=== PATIENT | male | born 1965 | race Caucasian/White ===

== ENCOUNTER 2018-07-06 11:03 | Outpatient (REF) | payer BC, SELFPAY ==
[2018-07-06 12:54] LABS: COMMENT (LAB VIEW ONLY) 150.84 mg/dL; Microalb ug/mg Crea 4.8 ug/mg Cr
[2018-07-06 12:54] LABS: ALT 29 U/L (12-78); AST 16 U/L (15-37); Albumin 3.6 g/dL (3.4-5.0); Alkaline Phosphatase 72 U/L (46-116); Anion Gap 7.9 mmol/L (3-11); BUN 13 mg/dL (7-18); Bilirubin, Total 0.3 mg/dL (0.2-1.0); CO2 26.1 mmol/L (21.0-32.0); CREATININE 1.08 mg/dL (0.70-1.30); Calcium 8.8 mg/dL (8.5-10.1); Chloride 104 mmol/L (98-107); Cholesterol 142 mg/dL (50-200); Glucose 106 mg/dL (70-100); HDL Cholesterol 53 mg/dL (40-60); LDL CHOLESTEROL 76 mg/dL (<100); Potassium 4.8 mmol/L (3.5-5.1); Sodium 138 mmol/L (136-145); TSH (W/Ref FT4) 2.55 uIU/mL (0.358-3.74); Total Protein 6.9 g/dL (6.4-8.2); Triglyceride 97 mg/dL (30-150)
[2018-07-07 09:35] LABS: PSA, Screening 0.8 ng/ml (0-3.5)
== END 2018-07-06 11:23 ==
LOC: NCHCN 11:03
PROVIDERS: PCP Nurse Practitioner Family; Visit Provider Nurse Practitioner Family
DX: I10 Essential (primary) hypertension (principal); E03.9 Hypothyroidism, unspecified; Z12.5 Encounter for screening for malignant neoplasm of prostate
CPT/HCPCS: 80053; 80061; 83721; 84153; 82043; 82570; 84443

== ENCOUNTER 2019-09-01 09:31 | Outpatient (REF) | payer BC, SELFPAY ==
[2019-09-01 12:32] LABS: Bilirubin Negative (Negative); Blood Trace-intact (Negative); Clarity Clear (Clear); Glucose Negative (Negative); Ketones Negative (Negative); Leukocyte Esterase Negative (Negative); Nitrite Negative (Negative); Specific Gravity 1.025 (1.005-1.025); Urobilinogen 0.2 EU/dL (Up TO 0.2)
[2019-09-01 12:41] LABS: Bacteria Few HPF (Negative); C & S Indicated? No; Casts Negative LPF (Negative); Crystals Negative HPF (Negative); Epithelial Cells Rare HPF (Negative); Mucus Trace (Negative); WBC 0-2 HPF (0-5)
== END 2019-09-01 09:51 ==
LOC: NCHCN 09:31
PROVIDERS: PCP Nurse Practitioner Family; Visit Provider Nurse Practitioner Family
DX: N39.41 Urge incontinence (principal)
CPT/HCPCS: 81003; 81015

== ENCOUNTER 2022-12-09 09:28 | Outpatient (REF) | payer BC, SELFPAY ==
[2022-12-09 15:37] LABS: Hemoglobin A1C 6.4 % (<5.7)
[2022-12-09 15:51] LABS: ALT 22 U/L (16-63); AST 16 U/L (15-37); Albumin 3.8 g/dL (3.4-5.0); Alkaline Phosphatase 70 U/L (46-116); Anion Gap 9.8 mmol/L (3-11); BUN 14 mg/dL (7-18); Bilirubin, Total 0.4 mg/dL (0.2-1.0); CO2 26.2 mmol/L (21.0-32.0); Calcium 9.5 mg/dL (8.5-10.1); Calculated LDL 67 mg/dL (<100); Chloride 103 mmol/L (98-107); Cholesterol 139 mg/dL (<200); Estimated GFR 88.33 (mL/min/1.73m2); Glucose 115 mg/dL (74-106); HDL Cholesterol 50 mg/dL (40-60); Potassium 4.6 mmol/L (3.5-5.1); Sodium 139 mmol/L (136-145); TSH 7.02 uIU/mL (0.36-3.74); Triglyceride 113 mg/dL (<150)
[2022-12-09 16:27] LABS: FREE T4 0.82 ng/dL (0.76-1.46); Total Protein 7.1 g/dL (6.4-8.2)
== END 2022-12-09 09:29 | disposition home or self-care (01) ==
LOC: NCHCN 09:28
PROVIDERS: Visit Provider Nurse Practitioner Family
DX: E03.9 Hypothyroidism, unspecified (principal); Z12.5 Encounter for screening for malignant neoplasm of prostate; Z87.891 Personal history of nicotine dependence
CPT/HCPCS: 80053; 80061; 84153; 83036; 84439; 84443

== ENCOUNTER 2023-07-20 13:17 | Outpatient (REF) | payer BC, SELFPAY ==
[2023-07-20 20:32] LABS: ALT 26 U/L (16-63); AST 21 U/L (15-37); Albumin 3.9 g/dL (3.4-5.0); Alkaline Phosphatase 71 U/L (46-116); Anion Gap 13.2 mmol/L (3-11); BUN 15 mg/dL (7-18); Bilirubin, Total 0.4 mg/dL (0.2-1.0); CO2 21.8 mmol/L (21.0-32.0); Calcium 9.2 mg/dL (8.5-10.1); Chloride 103 mmol/L (98-107); Estimated GFR 87.78 (mL/min/1.73m2); FREE T4 0.85 ng/dL (0.76-1.46); Glucose 105 mg/dL (74-106); Potassium 4.2 mmol/L (3.5-5.1); Sodium 138 mmol/L (136-145); TSH 4.74 uIU/mL (0.36-3.74); Total Protein 7.5 g/dL (6.4-8.2)
[2023-07-20 22:54] LABS: Hemoglobin A1C 6.4 % (<5.7)
== END 2023-07-20 13:18 | disposition home or self-care (01) ==
LOC: NCHCN 13:17
PROVIDERS: PCP Nurse Practitioner Family; Visit Provider Nurse Practitioner Family
DX: E03.9 Hypothyroidism, unspecified (principal); I10 Essential (primary) hypertension; R73.03 Prediabetes
CPT/HCPCS: 80053; 83036; 84439; 84443

== ENCOUNTER 2023-07-30 04:16 | Outpatient (CLI) | payer BC, SELFPAY ==
[2023-07-30] MEDS: Levalbuterol HFA 15 GM INH 4 PUFF IH (09:27)
[2023-07-30] MEDS: Inhaler, Assist Device 1 EACH MC (09:27)
--- NOTE | 2023-08-02 14:08 | W.PFT ---
Date of service: 07/30/23 Time of Service: 07:59 Pulmonary Function Test Result Indications: Dyspnea Interpretation Spirometry: There is no airflow limitation. No significant bronchodilator response. Lung Volumes: Normal lung volumes Diffusion Capacity: Normal diffusion Airway Pressure: Normal resistance Impression Normal pulmonary function testing Clinical Correlation therefore is recommended.
== END 2023-07-30 04:17 | disposition home or self-care (01) ==
LOC: RT 04:16
PROVIDERS: PCP Nurse Practitioner Family; Visit Provider Nurse Practitioner Family
DX: R06.09 Other forms of dyspnea (principal)
CPT/HCPCS: 94060; 94726; 94729

== ENCOUNTER 2023-09-03 09:09 | Emergency (ER) | payer BC, SELFPAY ==
[2023-09-03 09:17] VITALS: BP 130/65; PULSE 61; RESP 20; TEMP 36.4; O2SAT 100
[2023-09-03 09:41] VITALS: BP 130/65; PULSE 61; RESP 20; TEMP 36.4; O2SAT 100
--- NOTE | 2023-09-03 10:00 | DI.CT_ITS ---
Exam(s) CT RENAL COLIC WO EXAM: CT RENAL COLIC WO CLINICAL HISTORY: right flank pain. TECHNIQUE: Imaging Protocol: Axial computed tomography images with coronal and sagittal reformatted images were created and reviewed. CONTRAST MATERIAL: Noncontrast COMPARISON: CT CHEST FOR PULMONARY EMBOLUS from 05/20/[address] CHEST LUNG CANCER SCREEN from 08/13/2023 FINDINGS: ABDOMEN: Lung Bases: Normal where visualized. Liver: Enlarged. Severe hepatic steatosis. No measurable mass. Gallbladder and biliary tract: No radiodense calculus or dilation. Pancreas: Normal density, no calcifications or inflammatory process. Spleen: Normal. Kidneys: Normal size, contour and axis. 7 millimeter stone noted in lower pole collecting system of t he left kidney. Additional punctate stone lower pole left kidney. No right renal calculi. No perin ephric collections. No masses seen. Adrenal glands: No masses seen. Abdominal Aorta: Abdominal portion non-dilated. Soft tissues: Bilateral fatty containing inguinal hernias, left greater than right. PELVIS: Bladder: Symmetric distention, no gross wall thickening. No evidence of stones.No visible mass. Bowel: No obstruction or bowel wall thickening. Reproductive: Unremarkable. Peritoneal cavity: No ascites, collection or mesenteric inflammatory response. Bones: Degenerative changes in the spine. Bilateral L5 spondylolysis and mild L5-S1 spondylolisthesi s. IMPRESSION: 7 millimeter nonobstructed calculus in the lower pole collecting system of the left kidney. Findings called to Derrick Rios, emergency department provider. RADIATION DOSE DELIVERED: Total DLP DATA REPOSITORY: All CT scans at this facility are submitted to the National Radiology Data Registry (NRDR) Dose Index Registry (DIR) with the [employer] (A[employer]). RADIATION OPTIMIZATION: All CT scans at this facility use at least one of these dose optimization te chniques: automated exposure control; mA and/or kV adjustment per patient size (includes targeted exa ms where dose is matched to clinical indication); or iterative reconstruction.
--- NOTE | 2023-09-03 10:10 | ED.GENADUL_ITS ---
Discharge Plan Disposition Patient Disposition: Home Discharge Details Clinical Impression: Acute right flank pain, Hematuria, Renal calculus, left Primary Care Provider: Francheska Sheffield ED Provider: Derrick Rios Home Meds and New Rx's Prescriptions: New tamsulosin [Flomax] 0.4 mg capsule 0.4 mg PO QHS Qty: 30 1RF Continued gabapentin 100 mg capsule 300 mg PO QHS oxybutynin chloride 15 mg tablet extended release 24hr 15 mg PO DAILY budesonide-formoterol [Symbicort] 160-4.5 mcg/actuation HFA aerosol inhaler 2 puff IH BID ProAir RespiClick 90 mcg/actuation aerosol powdr breath activated 2 inh IH Q6H PRN duloxetine [Cymbalta] 60 mg capsule,delayed release(DR/EC) 90 mg PO DAILY cholecalciferol (vitamin D3) 50,000 unit capsule 50,000 unit PO QWEEK lisinopril [Zestril] 20 MG tablet 40 mg PO DAILY levothyroxine [Synthroid] 50 MCG tablet 50 mcg PO DAILY Hold Instructions: patient's request to hold multivitamin 1 EACH capsule 1 cap PO DAILY Discharge Instructions Instructions: Kidney Stones (ED), Flank Pain (ED) Additional Instructions: At this time you do have a kidney stone in your left kidney but no findings were identified for your right flank pain. This could be medication reaction versus musculoskeletal. Currently I am recommending you hold any of your new medications and take your previously prescribed meds and follow-up with your primary care provider for further discussion of resumption of the new medications. As far as the left kidney stone it appears stable at this moment but we have started you on a medication you should take every night that if it decides to move or start expelling this should hopefully help decrease the discomfort and at that time you should call the urology office and less severe pain occurs. For any new or significant worsening of symptoms feel free to return the emergency department for recheck Referrals: [facility] [Provider Group] (As needed ) Francheska Sheffield [Primary Care Provider] - (For further discussion of restarting any medications) Discharge Data Discharge Date/Time-TO BE ENTERED AT DEPARTURE: 09/03/23 12:10 Medical Decision Making Patient presenting to the emergency department for chief complaint of right flank pain. Patient reports that this started within 24 to 48 hours after starting new medications of atorvastatin hydrochlorothiazide and lisinopril. He does state his other medications he has been on for a while and he had some increases of these meds but they have never caused him any issues. Patient states that pain has continued to increase. 6 days ago he stopped all of the new medications but has continued to have pain and discomfort. Patient contacted his primary care provider who recommended he come to the emergency department. Beyond right flank pain that is intermittently increased by movement patient denies all other symptoms. Patient has past medical history of complicated surgery due to work injury and MRSA, hypertension, hyperlipidemia, prediabetes, and obesity. Physical exam is completely unremarkable with no findings noted except for very slight right CVA tenderness. We will plan on checking labs and CT imaging. No emergent intervention needed as patient states he is pain-free at the moment of exam. Differential diagnosis is broad but including hepatotoxicity secondary to atorvastatin, renal dysfunction, kidney stone, myalgia secondary to atorvastatin, or paraspinal/back strain. Reviewed patient's labs and CBC is overall noncontributory CMP shows slight elevation of BUN at 26 otherwise within normal range of labs. Urinalysis shows trace amount of blood but is negative for infection or other findings. CT imaging does show a 7.5 mm stone within the left renal collecting system otherwise no obvious emergent findings noted on imaging. Suspect possible myalgia or medication reaction causing right flank pain so we will have patient hold off on new medications and discuss resumption of these meds with primary care provider given the short timeframe of new medications and symptoms. Given significant stone that is in the left collecting system did speak with Dr. Betancourt and discussed starting patient on tamsulosin. After he reviewed CT imaging he did state that this would be beneficial which I agree. Patient to follow-up with primary care provider about resumption of meds and urology if he becomes symptomatic for her reevaluation of kidney stone. After discussion of diagnosis and plan of care patient has no further needs, questions , or concerns and states clear understanding to return to the emergency department for any worsening symptoms. This documentation was generated using [employer] system, please disregard any oddities of phrase or misspellings. Imaging Data Radiologic Study: Imaging: CT Scan Radiologist's impression: Exam(s) CT RENAL COLIC WO EXAM: CT RENAL COLIC WO CLINICAL HISTORY: right flank pain. TECHNIQUE: Imaging Protocol: Axial computed tomography images with coronal and sagittal reformatted images were created and reviewed. CONTRAST MATERIAL: Noncontrast COMPARISON: CT CHEST FOR PULMONARY EMBOLUS from 05/20/[address] CHEST LUNG CANCER SCREEN from 08/13/2023 FINDINGS: ABDOMEN: Lung Bases: Normal where visualized. Liver: Enlarged. Severe hepatic steatosis. No measurable mass. Gallbladder and biliary tract: No radiodense calculus or dilation. Pancreas: Normal density, no calcifications or inflammatory process. Spleen: Normal. Kidneys: Normal size, contour and axis. 7 millimeter stone noted in lower pole collecting system of the left kidney. Additional punctate stone lower pole left kidney. No right renal calculi. No perinephric collections. No masses seen. Adrenal glands: No masses seen. Abdominal Aorta: Abdominal portion non-dilated. Soft tissues: Bilateral fatty containing inguinal hernias, left greater than right. PELVIS: Bladder: Symmetric distention, no gross wall thickening. No evidence of stones.No visible mass. Bowel: No obstruction or bowel wall thickening. Reproductive: Unremarkable. Peritoneal cavity: No ascites, collection or mesenteric inflammatory response. Bones: Degenerative changes in the spine. Bilateral L5 spondylolysis and mild L5-S1 spondylolisthesis. IMPRESSION: 7 millimeter nonobstructed calculus in the lower pole collecting system of the left kidney. Findings called to Derrick Rios, emergency department provider. Lab Data Lab results reviewed: Yes I reviewed the patient's lab results. HPI General Mode of arrival: ambulatory . Date/Time Provider Initiated Documentation: 09/03/23 09:09 . Limitations to Documentation: no limitations . Information obtained by: patient and RN notes reviewed . History of Present Serjio patterson 58 year old M presents to the emergency department with the chief complaint of right flank pain , described as moderate and severe, Quality is described as other, and is localized to the back and right. Patient reports no radiation. Patient started experiencing this week(s) (8) and it has been constant. No relieving factors improve symptom(s), Medication worsens symptoms . Patient notes no other symptoms.. Patient did receive the following treatments prior to arrival, NSAID Related Data Home Medications Medication Instructions Recorded Confirmed levothyroxine 50 mcg tablet 50 mcg PO DAILY 05/20/15 09/03/23 (Synthroid) lisinopril 20 mg tablet (Zestril) 40 mg PO DAILY 05/20/15 09/03/23 multivitamin 1 cap PO DAILY 05/20/15 09/03/23 albuterol sulfate 90 mcg/actuation 2 inh inhalation Q6H PRN 09/18/19 09/03/23 breath activated powder inhaler (ProAir RespiClick) budesonide-formoterol HFA 160 2 puff inhalation BID 09/18/19 09/03/23 mcg-4.5 mcg/actuation aerosol inhaler (Symbicort) cholecalciferol (vitamin D3) 1,250 50,000 unit PO QWEEK 09/18/19 09/03/23 mcg (50,000 unit) capsule duloxetine 60 mg capsule,delayed 90 mg PO DAILY 09/18/19 09/03/23 release (Cymbalta) gabapentin 100 mg capsule 300 mg PO QHS 09/18/19 09/03/23 oxybutynin chloride 15 mg 15 mg PO DAILY 09/18/19 09/03/23 tablet,extended release 24 hr tamsulosin 0.4 mg capsule (Flomax) 0.4 mg PO QHS #30 caps 09/03/23 Previous Rx's Medication Instructions Recorded tamsulosin 0.4 mg capsule (Flomax) 0.4 mg PO QHS #30 caps 09/03/23 Allergies Allergy/AdvReac Type Severity Reaction Status Date / Time paroxetine [From Paxil] Allergy Unknown unknown Verified 09/03/23 09:23 pregabalin [From Lyrica] Allergy Unknown unknown Verified 09/03/23 09:23 acetaminophen [From Vicodin] AdvReac Intermediate Headache Unverified 09/03/23 09:23 hydrocodone bitartrate AdvReac Intermediate Headache Unverified 09/03/23 09:23 [From Vicodin] General Stated Complaint: FlankPain TEODORO: 3 Review of Systems Constitutional Constitutional: Reports chills, Denies fever(s) and Reports malaise Cardiovascular Cardiovascular: Denies chest pain and Denies dyspnea Respiratory Respiratory: Denies cough and Denies dyspnea Gastrointestinal Gastrointestinal: Denies abdominal pain, Denies diarrhea, Denies nausea and Denies vomiting Genitourinary Genitourinary: Denies hematuria and Reports flank pain Musculoskeletal Musculoskeletal: Reports back pain, Denies myalgias, Denies arthralgias, Denies numbness, Denies stiffness and Denies tingling Integumentary/Breasts Skin/Breast: Denies rash Neurologic Neurologic: Denies numbness and Denies tingling PFSH All Active Problems (Updated 09/03/23 @ 12:01 by Derrick Rios NP) Renal calculus, left (Acute) Acute right flank pain (Acute) DJD (degenerative joint disease) (Chronic) Obesity, morbid, BMI 50 or higher (Acute) Hypertension (Chronic) Anxiety (Chronic) Depression (Chronic) Hypothyroidism (Chronic) SOB (shortness of breath) (Acute) Urge incontinence (Acute) Asthma (Chronic) Hematuria (Acute) Onychomycosis (Acute) Former smoker (Acute) OLIVIA (dyspnea on exertion) (Acute) Social History Smoking/Tobacco Use Status: Current every day Smoking risk assessment performed?: Yes Alcohol Intake: current Alcohol Intake frequency: a few times a month Drug use: Never Substance use type: does not use Housing: house Do you feel safe at home: Yes Do you feel safe in your relationship?: Yes Exam Const General: cooperative Orientation: alert, awake and oriented x3 Resp Effort & Inspection: normal respiratory effort and able to speak in complete sentences Auscultation: clear to auscultation bilaterally Cardio Rate: regular rate Rhythm: regular rhythm Heart Sounds: S1 normal and S2 normal GI Inspection: obesity Palpation: soft, not firm, no guarding, no masses, no pulsatile masses, not rigid, no splenomegaly and nontender Auscultation: normal bowel sounds General: CVA tenderness on the right Back/Spine/Pelvis Back: CVA tenderness Thoracic/Lumbar Spine: thoracic and lumbar spine normal to inspection, No pain with thoraco-lumbar ROM, No paraspinal tenderness, No thoracic spinal tenderness and No lumbar spinal tenderness Neuro General: patient alert, patient awake, patient oriented x3, gait normal and moves all extremities Course Vital Signs Vital signs: Vital Signs Temperature 36.4 C L 09/03/23 09:17 Pulse 61 09/03/23 09:17 Respiratory Rate 20 09/03/23 09:17 Blood Pressure 130/65 09/03/23 09:17 Pulse Oximetry 100 09/03/23 09:17 Temperature 36.4 C L 09/03/23 09:41 Temperature Source Temporal Artery Scan 09/03/23 09:41 Pulse 61 09/03/23 09:41 Respiratory Rate 20 09/03/23 09:41 Respiratory Effort Normal 09/03/23 09:52 Blood Pressure 130/65 09/03/23 09:41 Blood Pressure Position Sitting 09/03/23 09:41 Pulse Oximetry 100 09/03/23 09:41 Oxygen Delivery Method Room Air 09/03/23 09:41 Oxygen Flow Rate 0 09/03/23 09:41
[2023-09-03 10:22] LABS: Abs Immature Grans 0.02 10^3/uL (0.0-0.06); Absolute Basophil Count 0.05 10^3/uL (0.0-0.2); Absolute Eosinophil Count 0.22 10^3/uL (0.0-0.7); Absolute Lymphocyte Count 1.85 10^3/uL (1.2-3.4); Absolute Monocyte Count 1.14 10^3/uL (0.1-0.8); Absolute Neutrophil Count 5.92 10^3/uL (1.2-6.7); Basophils % 0.5; Eosinophils % 2.4; HCT 46.9 % (40.0-50.0); HGB 14.9 g/dL (13.5-17.5); Immature Grans % 0.2; Lymphocytes % 20.1; MCH 26.7 pg (27.0-33.0); MCHC 31.8 % (32.0-36.0); MCV 84 fL (80-95); MPV 9.5 fL (8.0-11.0); Monocytes % 12.4; Neutrophils % 64.4; Platelet Count 339 10^3/uL (130-400); RBC 5.59 10^6/uL (4.36-5.78); RDW 14.5 % (11.8-14.1)
[2023-09-03 10:42] LABS: ALT 22 U/L (16-63); AST 15 U/L (15-37); Alkaline Phosphatase 66 U/L (46-116); Anion Gap 9.8 mmol/L (3-11); BUN 26 mg/dL (7-18); Bilirubin, Total 0.4 mg/dL (0.2-1.0); CO2 24.2 mmol/L (21.0-32.0); CREATININE 1.3 mg/dL (0.70-1.30); Calcium 9.6 mg/dL (8.5-10.1); Chloride 104 mmol/L (98-107); Creatine Kinase 147 U/L (39-308); Estimated GFR 64.07 (mL/min/1.73m2); Glucose 94 mg/dL (74-106); Potassium 4.5 mmol/L (3.5-5.1); Sodium 138 mmol/L (136-145); Uric Acid 7.2 mg/dL (3.5-7.2)
[2023-09-03 11:12] LABS: Bilirubin Negative (Negative); Blood Trace-intact (Negative); Clarity Clear (Clear); Glucose Negative (Negative); Ketones Negative (Negative); Leukocyte Esterase Negative (Negative); Nitrite Negative (Negative); Urobilinogen 0.2 mg/dL (Up to 0.2); pH 5.5 (5-8)
[2023-09-03 11:22] LABS: Bacteria Negative HPF (Negative); C & S Indicated? No; Casts Negative LPF (Negative); Crystals Negative HPF (Negative); Epithelial Cells Rare HPF (Negative); Mucus Negative (Negative); RBC 0-2 HPF (0-2); WBC Negative HPF (0-5)
[2023-09-03] MEDS: Lidocaine 5% Patch 1 PATCH TP (12:07)
== END 2023-09-03 12:10 | disposition home or self-care (01) ==
PROVIDERS: Emergency Provider Nurse Practitioner Family; PCP Nurse Practitioner Family
DX: R10.9 Unspecified abdominal pain (principal); N20.0 Calculus of kidney; K40.20 Bilateral inguinal hernia, without obstruction or gangrene, not specified as recurrent; I10 Essential (primary) hypertension; E78.5 Hyperlipidemia, unspecified
CPT/HCPCS: 36415; 80053; 82550; 99284; 74176; 81003; 81015; 84550; 85025

== ENCOUNTER 2023-11-11 10:59 | Day surgery (SDC) | payer BC, SELFPAY ==
[2023-11-11] VITALS (9 sets, daily range): BP systolic 101–139; BP diastolic 48–83; PULSE 64–83; RESP 13–17; TEMP 36.3–36.6; O2SAT 96–99; BMI 49.4
--- NOTE | 2023-11-11 12:05 | ANES.PREOP_ITS ---
General Info Date of Service Date Performed: 11/11/23 Height: 5 ft 8 in Weight: 147.418 kg Body Mass Index (BMI): 49.4 Surgical Procedure: Operation Date: 11/11/23 13:10 Proposed Procedure Side Surgeon p Cystoscopy/Laser/Retrograde/Ureteroscopy/Possible Stent Left Onesimo Betancourt MD s Circumcision Onesimo Betancourt MD Meds Allergies and Home Medications Allergies Allergy/AdvReac Type Severity Reaction Status Date / Time paroxetine [From Paxil] Allergy Unknown unknown Verified 11/11/23 11:47 pregabalin [From Lyrica] Allergy Unknown unknown Verified 11/11/23 11:47 Sulfa (Sulfonamide Allergy Verified 11/11/23 11:47 Antibiotics) acetaminophen [From Vicodin] AdvReac Intermediate Headache Unverified 11/11/23 11:47 hydrocodone bitartrate AdvReac Intermediate Headache Unverified 11/11/23 11:47 [From Vicodin] Home Medication Medication Instructions Recorded levothyroxine 50 mcg tablet 50 mcg PO DAILY 05/20/15 (Synthroid) lisinopril 20 mg tablet (Zestril) 40 mg PO DAILY 05/20/15 multivitamin 1 cap PO DAILY 05/20/15 duloxetine 60 mg capsule,delayed 90 mg PO DAILY 09/18/19 release (Cymbalta) tamsulosin 0.4 mg capsule (Flomax) 0.4 mg PO QHS #30 caps 09/03/23 cyclobenzaprine 10 mg tablet 10 mg PO BID 10/29/23 metformin 500 mg tablet 500 mg PO DAILY 10/29/23 vuemzkr-dksmutvgcklra-zjpzqeng 250 1 tab PO ONCE 11/11/23 mg-250 mg-65 mg tablet ogiomwd-deeexwltc-wzij 333 mg-133 tab PO 11/11/23 mg-5 mg tablet fish, borage, flaxseed oils-omega 1 cap PO DAILY 11/11/23 3,6,9 cb #1 400 mg-400 mg-400 mg cap ([place] 3-6-9 Complex) fish, borage, flaxseed oils-omega 1 cap PO DAILY 11/11/23 3,6,9 cb #1 400 mg-400 mg-400 mg cap (Triple [place] 3-6-9) hydrochlorothiazide 25 mg tablet mg 11/11/23 tri chromium 500 mcg 01/11/24 Current Visit Medications: Current Medications Generic Name Dose Route Start Last Admin Trade Name Freq PRN Reason Stop Dose Admin Ringer's Solution 1,000 mls @ 80 mls/hr 11/11/23 06:00 IV 12/10/23 23:59 INFUSION CÉSAR Cefazolin Sodium 3,000 mg/ 100 mls @ 200 mls/hr 11/11/23 06:00 Sodium Chloride IVPB 11/11/23 16:00 PREOP CÉSAR IV Miscellaneous Supplies 1 each 11/11/23 06:00 Iv Access IV 12/10/23 23:59 DIRECTED CÉSAR Sodium Chloride 0 ml 11/11/23 06:00 Normal Saline Flush 10 Ml Syr IV 12/10/23 23:59 PRN PRN Sodium Chloride 0 ml 11/11/23 06:00 Normal Saline 10 Ml Vial IJ 12/10/23 23:59 DIRECTED PRN Sterile Water 0 ml 11/11/23 06:00 Water,Injection,Sterile 10 Ml Vial IJ 12/10/23 23:59 DIRECTED PRN PFSH Active Problems Active Problems: Problem Status Onset Code Phimosis N47.1 DJD (degenerative joint disease) M19.90 Obesity, morbid, BMI 50 or higher E66.01 Hypertension I10 Anxiety F41.9 Depression F32.9 Hypothyroidism E03.9 SOB (shortness of breath) R06.02 Urge incontinence N39.41 Asthma J45.909 Hematuria R31.9 Onychomycosis B35.1 Former smoker Z87.891 OLIVIA (dyspnea on exertion) R06.09 Medical History Medical History (Updated 11/11/23 @ 12:18 by Onesimo Betancourt MD) Hx MRSA infection 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 Hx of tear of ACL (anterior cruciate ligament) x3 l knee Surgical History Surgical History (Updated 11/11/23 @ 11:59 by Sarah Phan) Hx of appendectomy History of carpal tunnel release of both wrists Hx of repair of right rotator cuff Tobacco Smoking/Tobacco Use Status: Former Tobacco Use Alcohol Alcohol Intake: current Alcohol intake frequency: a few times a month Substance Use Substance use: Never Substance use type: does not use Vital Signs and Lab Results Vital Signs Most Recent Vital Signs in EMR: Temp Pulse Resp BP Pulse Ox 36.6 C 83 15 139/83 97 11/11/23 12:01 11/11/23 12:01 11/11/23 12:01 11/11/23 12:01 11/11/23 12:01 Lab Results Blood Type / Crossmatch: No Data to Display Complete Blood Count: No Data to Display Complete Metabolic Panel: No Data to Display Liver Function Panel: No Data to Display Coagulation Panel: No Data to Display Cardiac Panel: No Data to Display Arterial Blood Gas: No Data to Display Venous Blood Gas: No Data to Display Pancreas Panel: No Data to Display Thyroid Panel: No Data to Display Infectious Disease: No Data to Display Blood Cultures: No Data to Display Toxicology Panel: No Data to Display Imaging and Studies Imaging and Studies Study information below may be from another EMR and interpreted by another provider. Please see original notes in EMR for more complete details. Stress Test Summary: Patient Name: STEVIE BAILEY Unit #: [id number] Loc: DI Ordering Provider: Cata Zhu Status: REG I Primary Care Provider: Cata Zhu Date of Exam: 06/03/15 Sex: M : 1965 Age: 50 Exam(s) [id number] NM:MPI Resting & Stress GRP *[facility]* *[facility]* [address] [place] [address] Myocardial Perfusion Imaging - SPECT Georges protocol Date of study: 06/03/2015 *PATIENT PRESENTATION* Height: 172.7cm (68in ) Blood Pressure: Weight: 147.7kg (325lb ) BSA: 2.75m^2 Impressions: - Normal perfusion by Tc99m Sestamibi Imaging. - Abnormal contraction consistent with cardiomyopathy. Summary: Myocardial perfusion imaging: No myocardial perfusion defects noted. Indication: 786.50. History: PT STATES THAT HE HAS HAD EPISODIC CHEST PAIN THIS YEAR. NOTABLY, PT HAS A SUDDEN ONSET OF CHEST PAIN WHILE DRIVING. HE C/O DIAPHORESIS, PAIN IN THE LEFT JAW AND LEFT ARM. PT WAS GIVEN NITROGLYCERIN BY EMS, WHICH RELIEVED THE CHEST PAIN. HE STATES THAT THE NUMBNESS IN HIS LEFT ARM LASTED A COUPLE DAYS. HE STATES HE HAD ANOTHER EPISODE OF CHEST PAIN LAST WEDNESDAY, WHICH LASTED ABOUT 30 MINUTES. PT DENIES CHEST PAIN CURRENTLY. HE DENIES SOB. Risk factors: FORMER SMOKER; 30 PACK YEAR HX PT STATES HE IS ACTIVE, BUT DOESNT GO OUT OF MY WAY. FAMILY HX: NONE Hypertension. Obesity. Cholesterol: 140mg/dl. HDL: 44mg/dl. LDL: 82mg/dl. Triglycerides: 119mg/dl. Imaging Technique: Protocol: Georges protocol. Acquisition: Gated SPECT; 1 day - rest/stress. The patient was imaged in the supine position. Attenuation correction used. Isotope administration: - Rest. Tc[99m]-sestamibi. Dose: 13.9mCi. Injection time: 10:05 AM. Injection to stress time: 00:45. - Stress. Tc[99m]-sestamibi. Dose: 47.2mCi. Injection time: 11:39 AM. 1-2 min before end of exercise Baseline ECG: SINUS @ 76 BPM Stress protocol: +--------+--+ + + Stage HR BP (mmHg) Comments +--------+--+ + + Baseline 76 132/80 (97) +--------+--+ + + 1 min 85 140/80 (100) Inject Regadenoson. +--------+--+ + + 2 min 83 132/80 (97) +--------+--+ + + 3 min 80 132/78 (96) +--------+--+ + + 4 min 79 134/78 (97) +--------+--+ + + 6 min 76 134/80 (98) +--------+--+ + + * Stress results: The rate-pressure product for the peak heart rate and blood pressure was 89457fn Hg/min. Stress ECG: TEST ENDED AT 06 MINUTES 25 SECONDS BECAUSE SYMPTOMS OF LEXISCAN SUBSIDED APPROPRIATE BP RESPONSE NO ECTOPY NO ANGINA Myocardial perfusion: Imaging information: gated. No myocardial perfusion defects noted. Ventricular Function (Wall Motion): The calculated left ventricular ejection fraction after stress: 44%. Study data: [facility] INFO: [id number] Stevie Amezcua MD supervised and was readily available during the procedure. This study was interpreted by [facility]. Study status: Routine. Consent: The risks, benefits, and alternatives to the procedure were explained to the patient and informed consent was obtained. Procedure: Initial setup. A baseline ECG was recorded. Surface ECG leads and manual cuff blood pressure measurements were monitored. Heart sounds: Normal. Lung sounds: Normal. Treadmill exercise testing was performed using the Georges protocol. Study completion: All catheters inserted during the procedure were removed. The patient tolerated the procedure well and was discharged from the lab. Discharge: The patient left the laboratory in stable condition. Birthdate: Patient birthdate: 1965. Sex: Gender: male. Study date: Study date: 03-Jun-2015. Electronically signed by Stevie Amezcua MD 06/03/2015 18:31 Dictated by: MANJEET HANDY M.D.06/03/15 1000 <Electronically signed by MANJEET HANDY M.D.>06/05/15 1623 Disclaimer: The [facility] radiologist is signing only the Nuclear Medicine MPI Imaging exam portion of the report. Transcribed by: Beau Tapia06/04/15 2057 CC: This is privileged, confidential information intended only for the provider named. Any use or distribution by any person other than this provider is strictly prohibited. If you receive this report in error, please notify us immediately at [phone] and return the original report to us at the address above. Thank-you. Echocardiogram Summary: 2011 ECHO reviewed: see provider notes. Pulmonary Function Summary: Pulmonary Function Test PATIENT NAME: Stevie Bailey UNIT #: [id number] ADMITTING PROVIDER: Kaylen Aldrich M.D. PRIMARY CARE PROVIDER: DINAH VELÁZQUEZ DATE OF ADMIT: 07/30/23 : 1965 Date of service: 07/30/23 Time of Service: 07:59 Pulmonary Function Test Result Indications: Dyspnea Interpretation Spirometry: There is no airflow limitation. No significant bronchodilator response. Lung Volumes: Normal lung volumes Diffusion Capacity: Normal diffusion Airway Pressure: Normal resistance Impression Normal pulmonary function testing Clinical Correlation therefore is recommended. Anesthesia Assessment and Plan Anesthesia History Personal History: No History of Anesthesia Complications Family History: No Family History of Anesthesia Complications Exercise Tolerance Exercise Tolerance: Metabolic Equivalents>4 Pertinent Negatives Pertinent Negatives: No Symptoms of GERD and No History of CVA/TIA Cardiac & Pulmonary Exam Cardiac Exam: Normal S1/S2 Heart Sounds Pulmonary Exam: Clear Bilateral Breath Sounds Implantable Cardiac Device Does patient have a Pacemaker or an ICD?: No Airway Exam Known Difficult Airway: No Mallampati Class: 3 Mouth Opening: Normal (> 3cm) Thyromental Distance: Greater than 3 cm Neck Range of Motion: Full ROM Neck Circumference: Thick Teeth Condition: Loose or Chipped (pt reports some molars missing ) ASA Classification ASA Score: ASA 3 Emergency Case?: No NPO Status NPO Status: NPO Clears >2 hours, Solids >8 hours Anesthesia Plan Resuscitation Status: Full Code Anesthesia Technique: General Anesthesia Airway Planned: Natural Airway Monitors Used: Standard Monitors and SedLine
--- NOTE | 2023-11-11 12:17 | W.PM.HP.N ---
Date of service: 11/11/23 Time of Service: 12:26 Assessment and Plan Assessment and plan (1) Phimosis: Status: Acute Assessment and plan: For circumcision (2) Kidney stones: Status: Chronic Assessment and plan: Will plan to do ureteroscopy and holmium laser lithotripsy of his known left kidney stone History of Present Illness History of Present Illness Chief Complaint: Phimosis Narrative: This is a 58-year-old gentleman who has noticed he is no longer able to retract the foreskin over the head of the glans. He experiences pain when he does attempt to retract the skin. He also notices spraying of his urinary stream when he voids. He has not had any skin infections that have required oral or topical antibiotics. He comes in for circumcision. He did have an ER visit for right-sided abdominal pain. As part of his evaluation a CT scan was done. A nonobstructing left kidney stone was found. He is interested in having his left kidney stone treated under the same anesthetic. Review of Systems Narrative: No fevers or chills No vision change or dysphasia Hypothyroidism. Diabetes Short of breath has improved with weight loss/exercise. No hemoptysis No chest pain or palpitations No nausea, vomiting, hepatitis, ulcers, jaundice No seizures, strokes or peripheral neuropathy No bleeding disorders or anemia No gout PFSH All Active Problems (Updated 11/11/23 @ 12:18 by Onesimo Betancourt MD) Kidney stones (Chronic) Phimosis (Acute) DJD (degenerative joint disease) (Chronic) Obesity, morbid, BMI 50 or higher (Acute) Hypertension (Chronic) Anxiety (Chronic) Depression (Chronic) Hypothyroidism (Chronic) SOB (shortness of breath) (Acute) Urge incontinence (Acute) Asthma (Chronic) Hematuria (Acute) Onychomycosis (Acute) Former smoker (Acute) OLIVIA (dyspnea on exertion) (Acute) Medical History (Updated 11/11/23 @ 12:18 by Onesimo Betancourt MD) Hx MRSA infection 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 Hx of tear of ACL (anterior cruciate ligament) x3 l knee Surgical History (Updated 11/11/23 @ 11:59 by Sarah Phan) Hx of appendectomy History of carpal tunnel release of both wrists Hx of repair of right rotator cuff Social History Smoking/Tobacco Use Status: Former Tobacco Use Quit Date: 11/01/21 Smoking risk assessment performed?: Yes Alcohol Intake: current Alcohol Intake frequency: a few times a month Alcohol type: beer Drug use: Never Substance use type: does not use Housing: house Do you feel safe at home: Yes Do you feel safe in your relationship?: Yes Meds Allergies and Home Medications Allergies Allergy/AdvReac Type Severity Reaction Status Date / Time paroxetine [From Paxil] Allergy Unknown unknown Verified 11/11/23 11:47 pregabalin [From Lyrica] Allergy Unknown unknown Verified 11/11/23 11:47 Sulfa (Sulfonamide Allergy Verified 11/11/23 11:47 Antibiotics) acetaminophen [From Vicodin] AdvReac Intermediate Headache Unverified 11/11/23 11:47 hydrocodone bitartrate AdvReac Intermediate Headache Unverified 11/11/23 11:47 [From Vicodin] Home Medications Medication Instructions Recorded Confirmed Type levothyroxine 50 mcg tablet 50 mcg PO DAILY 05/20/15 11/11/23 History (Synthroid) lisinopril 20 mg tablet (Zestril) 40 mg PO DAILY 05/20/15 11/11/23 History multivitamin 1 cap PO DAILY 05/20/15 11/11/23 History duloxetine 60 mg capsule,delayed 90 mg PO DAILY 09/18/19 11/11/23 History release (Cymbalta) tamsulosin 0.4 mg capsule (Flomax) 0.4 mg PO QHS #30 caps 09/03/23 11/11/23 Rx cyclobenzaprine 10 mg tablet 10 mg PO BID 10/29/23 11/11/23 History metformin 500 mg tablet 500 mg PO DAILY 10/29/23 11/11/23 History pcfdibr-kbhtdzpyyfvex-anbmhqov 250 1 tab PO ONCE 11/11/23 11/11/23 History mg-250 mg-65 mg tablet qbiheht-urcetvxbq-rtje 333 mg-133 tab PO 11/11/23 History mg-5 mg tablet fish, borage, flaxseed oils-omega 1 cap PO DAILY 11/11/23 11/11/23 History 3,6,9 cb #1 400 mg-400 mg-400 mg cap ([place] 3-6-9 Complex) fish, borage, flaxseed oils-omega 1 cap PO DAILY 11/11/23 11/11/23 History 3,6,9 cb #1 400 mg-400 mg-400 mg cap (Triple [place] 3-6-9) hydrochlorothiazide 25 mg tablet mg 11/11/23 History tri chromium 500 mcg 11/11/23 History Exam Const General: cooperative Nutritional Appearance: obese Neck Neck: supple Resp Effort & Inspection: normal respiratory effort Auscultation: clear to auscultation bilaterally Cardio Rate: regular rate Rhythm: regular rhythm GI Palpation: soft and no masses Penis: phimosis Meatus: other (unable to visualize meatus) Neuro General: patient alert, patient awake and patient oriented x3 Results Last Vital Signs Temp 36.6 C 11/11/23 12:01 Pulse 83 11/11/23 12:01 Resp 15 11/11/23 12:01 BP 139/83 11/11/23 12:01 Pulse Ox 97 11/11/23 12:01 Time Spent Time spent with Patient: <40 minutes Time was spent: other
[2023-11-11] MEDS: Lactated Ringers 1,000 ML 80 ML IV (12:30)
[2023-11-11] MEDS: ceFAZolin 3,000 MG in Normal Saline 100 ML 200 MG IVPB (13:11)
[2023-11-11] MEDS: Bupivacaine 0.5% Pres-Free 30 ML VIAL ×2 (14:01→14:50)
[2023-11-11] MEDS: Lidocaine 2% Jelly 11 ML SYR (14:01)
[2023-11-11] MEDS: Omnipaque 300 MG/ML 50 ML BTL (14:02)
--- NOTE | 2023-11-11 14:35 | DI.RAD_ITS ---
Exam(s) XR RETROGRADE IN OR EXAM: XR RETROGRADE IN OR CLINICAL HISTORY: left kidney stone. TECHNIQUE: 2D digital imaging was performed. COMPARISON: No exams were available for comparison FINDINGS: Fluoroscopy provided during urologic procedure. See procedure report for details. Total fluoroscopy time was 32.3 seconds IMPRESSION: Radiation exposure index/cumulative dose: Johnr= 26.253 mGy DATA REPOSITORY: RADIATION DOSE DELIVERED:
--- NOTE | 2023-11-11 14:59 | W.BRIEF ---
Date of service: 11/11/23 Time of Service: 14:59 Brief Operative Note Procedure/Pre & Post Op Diagnoses/Medical Grade Shoemaker: Operation Date: 11/11/23 13:10 Actual Procedures p Cystoscopy/Holmium Laser Lithotripsy/Retrograde Pyelogram/Ureteroscopy/Stent(Left) - Onesimo Betancourt MD s Circumcision(Not Applicable) - Onesimo Betancourt MD Pre-Op Diagnosis: PHIMOSIS, LEFT KIDNEY STONE Post-Op Diagnosis: PHIMOSIS, LEFT KIDNEY STONE Anesthesia Anesthesia Type: Local By Surgeon and General:No Airway Estimated Blood Loss Output, Estimated Blood Loss 100 Amount Specimen/Culture Specimen(s): 1. LEFT KIDNEY STONE FOR CHEMICAL ANALYSIS Complications Complications: None
--- NOTE | 2023-11-11 15:00 | ROE_ITS ---
Date of service: 11/11/23 Time of Service: 15:00 Operative Note Operative Note DATE OF PROCEDURE: 11/11/23 PRE-OP DIAGNOSIS: 1. Left kidney stone 2. phimosis POST-OP DIAGNOSIS: same PROCEDURE: cystoscopy with left retrograde pyelogram, left flexible ureteroscopy with holmium laser lithotripsy and stone fragment extraction, insert left ureteral stent circumcision SURGEON: Onesimo Betancourt ANESTHESIA TYPE: Local By Surgeon and General:No Airway Refer to Anesthesia Record ESTIMATED BLOOD LOSS: 100 PATHOLOGY: other (left kidney stones for chemical analysis) COMPLICATIONS: None Patient was transported to: PACU Patient's condition: stable Implants: 4.8 Moroccan by 22 to 30 cm left ureteral stent Indications: This is a 58-year-old gentleman who has a history of phimosis. He presents for circumcision. He had a recent emergency room visit for right sided abdominal pain. He was evaluated with a CT scan. He was found to have a nonobstructing stone on the left. He is interested in having the left-sided stone treated at the same time under the same anesthetic. Findings: stone in left lower pole Procedure Description: The patient was brought to the operating room on 11/11/2023. He was given preop erative IV antibiotics. After successful induction of general anesthesia, he was placed in the dorsal lithotomy position. His genitalia was prepped. We were unable to retract the foreskin, so the glans was not prepped. Initial attempts at blindly passing a 22 Moroccan cystoscope sheath into the urethral meatus were not successful. We then performed a dorsal slit in order to expose the glans. I was then able to pass the 22 Moroccan cystoscope and inspected the urethra and bladder using a 30 degree lens. The pendulous, bulbar and membranous urethra's appeared normal with no strictures. The prostatic urethra showed some mild lateral lobe enlargement but no significant median lobe. The bladder neck was entered and the bladder mucosa was inspected. Both ureteral orifices appeared normal. No blood was seen coming from either orifice. The remainder the bladder was smooth-walled with no papillary or nodular lesions. I was then able to pass a guidewire through a ureteral access catheter and maneuvered the wire into the left ureteral orifice. The access catheter was advanced over the wire and the wire was removed. We then injected Omnipaque under fluoroscopic guidance and outlined the calyces. We saw a filling defect in the lower pole calyx. The wire was replaced and the access catheter was removed. We passed the dual- lumen catheter over the wire and a second wire was positioned. We chose one of the wires as a working wire and the other as a safety wire. The ureteral access sheath was advanced over the working wire and the wire was then removed leaving the safety wire in place. I passed the flexible ureteroscope through the access sheath and was able to visualize a stone in the left lower pole calyx. We treated the stone with a 272 ?m holmium laser fiber. We used a power setting of 0.8 and a rate of 8. The stone fragmented well. I was then able to grasp a 3 large fragments with a 0 tip stone basket. Each of the fragments was sent to pathology for chemical analysis. At the completion of the procedure, I was not certain that all stone fragments had been removed. We placed a 4.8 Moroccan variable length stent by passing the stent over the safety wire. The stent was positioned with the proximal end curled in the renal pelvis and the distal end curled in the bladder. We will make plans in the future for a repeat ureteroscopy to ensure all stone fragments had been removed. The stent positioning was confirmed both fluoroscopically and cystoscopically. We then turned our attention back to the circumcision. We made a circumferential incision on the inner aspect of the foreskin at approximately 2 cm below the coronal sulcus. We also made an circumferential incision on the outer aspect of the foreskin where the skin turgor seemed more normal. The redundant skin was removed. Any bleeding points were cauterized with the Bovie. The skin edges were then reapproximated using simple interrupted 4-0 chromic. We actually needed to incise into his suprapubic skin in order to expose the penis. The skin was reapproximated with subcuticular 3-0 Vicryl sutures and the skin was closed with Dermabond. A Xeroform dressing was applied to the incision site. The patient tolerated this procedure well with no complications.
--- NOTE | 2023-11-11 15:43 | W.ANESPOSTOP ---
Postoperative Evaluation Date, Time and Location Date Performed: 11/11/23 Time Performed: 15:43 Patient Location: PACU Vital Signs Most Recent Imported Vital Signs: Most Recent Vital Signs Temp Pulse Resp BP Pulse Ox 36.4 C L 70 14 137/82 97 11/11/23 15:32 11/11/23 15:32 11/11/23 15:32 11/11/23 15:32 11/11/23 15:32 Pain Score Most Recent Pain Score: Most Recent Pain Score Pain Level 1 11/11/23 15:32 Assessment Mental Status: Awake (Alert & Oriented to Patient Baseline) Airway and Respiratory Function: Patent airway with normal (patient baseline) respiratory exam Cardiovascular Function: Hemodynamically Stable Hydration Status: Adequately Hydrated Nausea & Vomiting: No Nausea or Vomiting Pain: Pain is tolerable per patient Peripheral Nerve Block: Patient did not receive a nerve block
--- NOTE | 2023-11-11 15:50 | W.PM.DSUDISC ---
Date of service: 11/11/23 Time of Service: 15:50 Discharge Plan Disposition Patient Disposition: Home Condition: Stable Discharge Details Reason For Visit: ureteroscopy Attending Provider: Onesimo Betancourt Primary Care Provider: Francheska Sheffield Home Meds and New Rx's Prescriptions: No Action duloxetine [Cymbalta] 60 mg capsule,delayed release(DR/EC) 90 mg PO DAILY cyclobenzaprine 10 mg tablet 10 mg PO BID metformin 500 mg tablet 500 mg PO DAILY lisinopril [Zestril] 20 MG tablet 40 mg PO DAILY levothyroxine [Synthroid] 50 MCG tablet 50 mcg PO DAILY Hold Instructions: patient's request to hold multivitamin 1 EACH capsule 1 cap PO DAILY tamsulosin [Flomax] 0.4 mg capsule 0.4 mg PO QHS Qty: 30 1RF hydrochlorothiazide 25 mg tablet Patient Comments: TAKE ONE TABLET BY MOUTH EVERY DAY sqhjgny-etnjhjblmnrpt-ugwuwgtw 250-250-65 mg tablet 1 tab PO ONCE tri chromium 500 mcg fish,bora,flax oils-om3,6,9no1 [Triple [place] 3-6-9] 400-400-400 mg capsule 1 cap PO DAILY fish,bora,flax oils-om3,6,9no1 [[place] 3-6-9 Complex] 400-400-400 mg capsule 1 cap PO DAILY quuycbp-klqrgzdpk-aoii 333-133-5 mg tablet PO Patient Comments: also vit D3 Discharge Instructions Additional Instructions: if dressing is still present tomorrow, get dressing wet and remove - no need to replace dressing my office will contact patient to arrange cystoscopy and stent removal no need to strain urine may use tylenol and ibuprofen for discomfort Stand Alone Forms: Anesthesia Discharge Inst., [facility] Urology Cysto, [facility] Post-op CircumcisionСветлана ([facility]) Activity:: Activity as Tolerated Remove Dressings/Wound Care:: 24 hours Shower/Bathe:: 24 hours Diet:: As Tolerated Discharge Orders Discharge Orders: Discharge Order (Routine); Ordered 11/11/23 Ordered By: Onesimo Betancourt DS: Diagnosis Discharge Diagnosis (1) Phimosis: Status: Acute (2) Kidney stones: Status: Chronic
[2023-11-11] MEDS: Phenazopyridine 200 MG TAB PO (16:08)
[2023-11-11] MEDS: Tamsulosin 0.4 MG CAPCR PO (17:25)
[2023-11-18 14:03] LABS: Source: Left Kidney
== END 2023-11-11 17:44 | disposition home or self-care (01) ==
PROVIDERS: PCP Nurse Practitioner Family; Visit Provider Urology
PROC: (CPT 52356; principal; 2023-11-11 13:00)
PROC: (CPT 52356; 2023-11-11 13:00)
DX: N20.0 Calculus of kidney; N47.1 Phimosis
CPT/HCPCS: 52356; 54161; 74420; 82365; J0131; J0665; J0690; J1100; J1171; J1885; J2001; J2405; J2704; J3010; Q9967

== ENCOUNTER → 2023-12-10 01:43 | Outpatient (CLI) | payer BC, SELFPAY ==
--- NOTE | 2023-12-10 14:00 | DI.MRI_ITS ---
Exam(s) MR UPPER JOINT RT WO EXAM: MR UPPER JOINT RT WO CLINICAL HISTORY: PAIN RT SHOULDER M25.511 H/O RT ROTATOR CUFF REPAIR AT [facility] 2011 TECHNIQUE: Multiplanar multisequence MRI of the shoulder was performed. COMPARISON: CR RIGHT SHOULDER COMPLETE from 11/17/2010 FINDINGS: MARROW:There is no evidence of fracture, Hill-Sachs deformity, nor ominous osseous lesions. GLENOHUMERAL JOINT: There is no prominent joint effusion nor loose intra-articular bodies. There are moderate degenerative changes in the glenohumeral joint including small-moderate osteophyte on the i nferior articular surface of the humeral head. No degenerative subarticular cysts. ROTATOR CUFF MECHANISM: There has been rotator cuff previous surgery. Fastener channels are noted in the humeral head. AC JOINT/ACROMIUM: There has been surgical resection of the AC joint/decompression surgery.. There i s a 2 cm intervening distance. There is no evidence of os acromiale. Supraspinatus: There is a focus of fluid signal abnormality traversing the tendon at the insertion si te upon the greater tuberosity (coronal series 6001/image 11), consistent with small tear at this lev el. Is difficult to determine if this is a small full-thickness tear without fluid in the overlying bursa or a prominent partial thickness (articular side) tear. There is no retraction of the musculot endinous junction. No muscle atrophy. Infraspinatus: Mild increased signal. No tear. No prominent atrophy. There are degenerative subart icular cysts in the posterolateral aspect of the humeral head subjacent to the infraspinatus tendon i nsertion site. Teres Minor: Appears atrophic and with tendon thinning. Subscapularis/anterior cuff: Small focus of signal abnormality at the insertional aspect but no high- grade tear. No atrophy. BICEPS TENDON: There is a biceps tenodesis site in the anterior aspect of the proximal diaphysis of t he humerus. LABRUM: There is a focus of signal abnormality in the posterior-superior labrum seen on the axial siria ges (series 3001/image 11) which is probably a labral tear. There is no paralabral cyst at this leve l. The anterior labrum appears intact. No obvious tear of the superior labrum. Inferior labrum is difficult to assess on this study. The inferior glenohumeral ligament appears intact. QUADRILATERAL SPACE: No evidence of mass in the region of the axillary nerve and dorsal circumflex hu meral vessels. Visualized triceps muscle at this level appears unremarkable. IMPRESSION: 1. There is evidence of previous rotator cuff surgery and biceps tenodesis. There has been decompres geri of the AC joint. 2. There is small area of abnormal fluid signal seen throughout most of the thickness of the supraspi natus tendon just above the greater tuberosity, more prominent on the coronal than the sagittal image s and not associated with fluid in the overlying subacromial space. Either represents small full-thi ckness tear or prominent partial-thickness tear. 3. Atrophic appearing teres minor. 4. Focal signal abnormality at the insertional aspect of the anterior cuff-subscapularis but no full -thickness tear. 5. Small tear in the posterior superior labrum. No evidence of paralabral cyst. 6. Moderate degenerative changes in the glenohumeral joint. No obvious joint effusion. No loose in tra-articular bodies evident. DATA REPOSITORY:
== END ==
PROVIDERS: PCP Nurse Practitioner Family; Visit Provider Nurse Practitioner Family
DX: S43.431A Superior glenoid labrum lesion of right shoulder, initial encounter (principal); X58.XXXA Exposure to other specified factors, initial encounter; M25.511 Pain in right shoulder
CPT/HCPCS: 73221

== ENCOUNTER 2024-06-02 15:24 | Outpatient (REF) | payer BC, SELFPAY ==
--- OUTSIDE RECORDS SUMMARY | 2024-06-02 15:26 | XMS_ITS | Referral Summary ---
Author Organization [facility] Address [address] [place] [address] Care Team Providers Care Health Claims Examiner Name Role Phone Courtney Crabtree BARREL DRAINER Primary Care Provider Social History Tobacco Use Types Packs/Day Years Used Date Smoking Tobacco: Never Assessed Sex and Gender Information Value Date Recorded Sex Assigned at Not on file Gender Identity Not on file Sexual Orientation Not on file Plan of Treatment Not on file Care Teams Health Claims Examiner Relationship Specialty Start Date End Date Courtney Crabtree, BARREL DRAINER [address] [place] [address] [phone] PCP - General 06/14/14
--- OUTSIDE RECORDS SUMMARY | 2024-06-02 15:26 | XMS_ITS | Encounter Summary ---
Author Organization [facility] Address [address] [place] [address] Care Team Providers Care Ratings Analyst Name Role Phone Courtney Crabtree [employer] OPERATOR Primary Care Provider Encounter Details Date Type Department Care Team (Late st Contact Info) Description 12/09/2022 Lab Requisition [facility] Pathology & Laboratory Medicine - [address] [address] Outr Resulting Lab, Provider Social History Tobacco Use Types Packs/Day Years Used Date Smoking Tobacco: Never Assessed Sex and Gender Information Value Date Recorded Sex Assigned at Not on file Gender Identity Not on file Sexual Orientation Not on file documented as of this encounter Plan of Treatment Not on file documented as of this encounter Procedures Procedure Name Priority Date/Time Associated Diagnosis Comments PSA TOTAL, DIAGNOSTIC Routine 12/09/2022 7:40 EST documented in this encounter Results * PSA TOTAL, DIAGNOSTIC (12/09/2022 7:40 EST) PSA 1.0 <=3.5 ng/mL 12/09/2022 22:51 EST [facility] Blood VENOUS BLOOD / Unknown 12/09/2022 7:40 EST 12/09/2022 21:45 EST Narrative [facility] - 12/09/2022 22:51 EST NOTE: Serum PSA concentration should not be interpreted as absolute evidence for the presence or absence of malignant disease. Assayed on Siemens ADVIA Centaur XPT using chemiluminescent technology.??Values obtained by using different assay methods cannot be used interchangeably. Provider Outr Resulting Lab CHEMISTRY & BLOOD GAS ORDERABLES [facility] [address] [place] [address] documented in this encounter Visit Diagnoses Not on filedocumented in this encounter Care Teams Ratings Analyst Relationship Specialty Start Date End Date Courtney Crabtree NP [address] [place] [address] [phone] PCP - General 06/14/14 documented as of this encounter
--- OUTSIDE RECORDS SUMMARY | 2024-06-02 15:26 | XMS_ITS | Clinical Summary ---
Author Organization [facility] Address [address] [place] [address] Care Team Providers Care Knowledge Analyst Name Role Phone Courtney Crabtree SALT MACHINE OPERATOR Primary Care Provider Social History Tobacco Use Types Packs/Day Years Used Date Smoking Tobacco: Never Assessed Sex and Gender Information Value Date Recorded Sex Assigned at Not on file Gender Identity Not on file Sexual Orientation Not on file Plan of Treatment Health Maintenance Due Date Last Done Comments Hepatitis C Screen 1965 Hepatitis B Vaccine (1 of 3 - 19+ 3-dose series) 03/12 COVID-19 Vaccine (2022-24 season) 2023 Care Teams Knowledge Analyst Relationship Specialty Start Date End Date Courtney Crabtree NP [address] [place] [address] [phone] PCP - General 06/14/14
--- OUTSIDE RECORDS SUMMARY | 2024-06-02 15:26 | XMS_ITS | Data Portability ---
Author Organization [place] - [facility] Address [address] [place] [address] Assessment No assessment recorded. Plan of Treatment Reminders Order Date Submit Date Provider Last Modified By Organization Details Last Modified Time Details Appointments Follow Up 2023 12:30P M FRANCHESKA SHEFFIELD Not available Not available Not available Follow Up 2023 01:00P M FRANCHESKA SHEFFIELD Not available Not available Not available Lab None recorded. Referral None recorded. Procedures None recorded. Surgeries None recorded. Imaging None recorded. Medication Orders tamsulosi n 0.4 mg capsule 2023 024 NALDO [facility], [address] [place], [address], 01/07/2024 11:16:43 tramadol 50 mg tablet 2023 024 amattshy [facility], [address] [place], [address], 01/07/2024 16:09:15 Patient TargetsNo targets recorded. Patient InstructionsNo instructions recorded. Reason for Referral Urologist Referral for Circu mcision Referring Physician: Family Sofia Jaime, Encounter Date: 10/19/2023 Site Project Manager Referral for Steatosis of liver Referring Physician: Family Sofia Jaime, Encounter Date: 10/19/2023 Orthopedic Surgeon Referral for Shoulder pain right shoulder pain, abnormal MRI right shoulder (12/10/23 - multiple abnormalities), prior surgery. right shoulder pain, abnormal MRI right shoulder (12/10/23 - multiple abnormalities), prior surgery. Referring Physician: Francheska Sheffield, [facility], Encounter Date: 12/20/2023 Results Created Date Observation Date Name Description Value Unit Range Abnormal Flag LastModifiedBy Organization Detail LastModifiedTime 12/10/19 24 12/10/2023 MRI imagi ng repor t Patien t Name: Tree Antoine Unit #: [id number] Loc: DI Orderi ng Provid er: Yohannes Francheska Accoun t #: [id number] Status : REG CLI Primar y Care Provid er: Francheska Sheffield Date of Exam: Sex: M Admiss ion Date: : 1964 Age: 58 Exam(s ) MR UPPER JOINT RT WO EXAM: MR UPPER JOINT RT WO CLINIC AL HISTOR Y: PAIN RT SHOULD ER M25.51 1 H/O RT ROTATO R CUFF REPAIR AT [facility] 2011 TECHNI QUE: Multip lanar multis equenc e MRI of the should er was perfor med. COMPAR DARIEN: CR RIGHT SHOULD ER COMPLE TE from 2010 FINDIN GS: MARROW :There is no eviden ce of fractu re, Hill-S achs deform ity, nor ominou s osseou s lesion s. GLENOH UMERAL JOINT: There is no promin ent joint effusi on nor loose intra- articu lar bodies . There are modera te degene rative change s in the glenoh umeral joint includ ing small- modera te osteop hyte on the inferi or articu lar surfac e of the osvaldo l head. No degene rative subart icular cysts. ROTATO R CUFF MECHAN ISM: There has been rotato r cuff previo us surger y. Fasten er channe ls are noted in the osvaldo l head. AC JOINT/ ACROMI UM: There has been surgic al resect ion of the AC joint/ decomp ressio n surger y.. There is a 2 cm interv ening distan ce. There is no eviden ce of os acromi brittney. Supras pinatu s: There is a focus of fluid signal abnorm ality tiki sing the tendon at the insert ion site upon the greate r tubero sity (coron al series 6001/i mage 11), consis tent with small tear at this level. Is diffic ult to determ ine if this is a small full-t hickne ss tear withou t fluid in the overly ing bursa or a promin ent partia l thickn ess (artic ular side) tear. There is no retrac tion of the muscul otendi nous juncti on. No muscle atroph y. Infras pinatu s: Mild increa sed signal . No tear. No promin ent atroph y. There are degene rative subart icular cysts in the mingle operator olater al aspect of the osvaldo l head subjac ent to the infras pinatu s tendon insert ion site. Teres Minor: Appear s atroph ic and with tendon thinni ng. Subsca pulari s/ante rior cuff: Small focus of signal abnorm ality at the insert ional aspect but no high-g rade tear. No atroph y. BICEPS TENDON : There is a biceps tenode sis site in the anteri or aspect of the proxim al diaphy sis of the humeru s. LABRUM : There is a focus of signal abnorm ality in the mingle operator ior-padilla perior labrum seen on the axial images (serie s 3001/i mage 11) which is probab ly a labral tear. There is no parala bral cyst at this level. The anteri or labrum appear s intact . No obviou s tear of the superi or labrum . Inferi or labrum is diffic ult to assess on this study. The inferi or glenoh umeral ligame nt appear s intact . JOJO LATERA L SPACE: No eviden ce of mass in the region of the axilla ry nerve and dorsal circum flex osvaldo l vessel s. Visual ized tricep s muscle at this level appear s unrema rkable . IMPRES KWAME: 1. There is eviden ce of previo us rotato r cuff surger y and biceps tenode sis. There has been decomp ressio n of the AC joint. 2. There is small area of abnorm al fluid signal seen throug hout most of the thickn ess of the supras pinatu s tendon just above the greate r tubero sity, more promin ent on the huang l than the sagitt al images and not associ ated with fluid in the overly ing subacr omial space. Either repres ents small full-t hickne ss tear or promin ent partia l-thic kness tear. 3. Atroph ic appear ing teres minor. 4. Focal signal abnorm ality at the insert ional aspect of the anteri or cuff-s ubscap ularis but no full-t hickne ss tear. 5. Small tear in the mingle operator ior superi or labrum . No eviden ce of parala bral cyst. 6. Modera te degene rative change s in the glenoh umeral joint. No obviou s joint effusi on. No loose intra- articu lar bodies eviden t. DATA REPOSI TORY: Hira chicas By: Francheska Sheffield CC: ------ ------ ------ ------ ------ ------ ------ ------ ------ ------ ------ ------ - Dictat ed By: Venu Albarran M.D. 1704 Transc ribed By: Deion MCDONALD,Criselda casanova 1704 This is privil eged, confid ential inform ation intend ed only for the provid er named. Any use or distri bution by any person other than this provid er is strict ly prohib ited. If you receiv e this report in error, please notify us immedi corrinaly at and return the origin al report to us at the addres s above. Thank- you. [facility] [address], [place], [address] 12/20/2023 16:54:00 05/01/20 24 12/10/2023 MRI imagi ng repor t Patien t Name: Tree Antoine liss Leavitt Unit #: [id number] Loc: DI Orderi ng Provid er: Francheska Sheffield Accoun t #: [id number] Status : REG CLI Primar y Care Provid er: Francheska Sheffield Date of Exam: Sex: M Admiss ion Date: : 1964 Age: 58 Addend a: Exam(s ) MR UPPER JOINT RT WO ADDEND UM: The images were review ed. I agree with the farrukh gs and cali kwame below. Dictat ed By: Mame Monroe Mame Monroe 1704 Transc ribed By: Hill Glover Exam(s ) MR UPPER JOINT RT WO EXAM: MR UPPER JOINT RT WO CLINIC AL HISTOR Y: PAIN RT SHOULD ER M25.51 1 H/O RT ROTATO R CUFF REPAIR AT [facility] 2011 TECHNI QUE: Multip lanar multis equenc e MRI of the should er was perfor med. COMPAR DARIEN: CR RIGHT SHOULD ER COMPLE TE from 2010 FARRUKH CHILDRESS: MARROW :There is no eviden ce of fractu re, Hill-S achs deform ity, nor ominou s osseou s lesion s. GLENOH UMERAL JOINT: There is no promin ent joint effusi on nor loose intra- articu lar bodies . There are modera te degene rative change s in the glenoh umeral joint includ ing small- modera te osteop hyte on the inferi or articu lar surfac e of the osvaldo l head. No degene rative subart icular cysts. ROTATO R CUFF MECHAN ISM: There has been rotato r cuff previo us surger y. Fasten er channe ls are noted in the osvaldo l head. AC JOINT/ ACROMI UM: There has been surgic al resect ion of the AC joint/ decomp ressio n surger y.. There is a 2 cm interv ening distan ce. There is no eviden ce of os acromi brittney. Supras pinatu s: There is a focus of fluid signal abnorm torres martinezer sing the tendon at the insert ion site upon the greate r tubero sity (coron al series 6001/i mage 11), consis tent with small tear at this level. Is diffic ult to determ ine if this is a small full-t hickne ss tear withou t fluid in the overly ing bursa or a promin ent partia l thickn ess (artic ular side) tear. There is no retrac tion of the muscul otendi nous juncti on. No muscle atroph y. Infras pinatu s: Mild increa sed signal . No tear. No promin ent atroph y. There are degene rative subart icular cysts in the mingle operator olater al aspect of the osvaldo l head subjac ent to the infras pinatu s tendon insert ion site. Teres Minor: Appear s atroph ic and with tendon thinni ng. Subsca pulari s/ante rior cuff: Small focus of signal abnorm ality at the insert ional aspect but no high-g rade tear. No atroph y. BICEPS TENDON : There is a biceps tenode sis site in the anteri or aspect of the proxim al diaphy sis of the humeru s. LABRUM : There is a focus of signal abnorm ality in the mingle operator ior-padilla perior labrum seen on the axial images (serie s 3001/i mage 11) which is probab ly a labral tear. There is no parala bral cyst at this level. The anteri or labrum appear s intact . No obviou s tear of the superi or labrum . Inferi or labrum is diffic ult to assess on this study. The inferi or glenoh umeral ligame nt appear s intact . JOJO LATERA L SPACE: No eviden ce of mass in the region of the axilla ry nerve and dorsal circum flex osvaldo l vessel s. Visual ized tricep s muscle at this level appear s unrema rkable . IMPRES KWAME: 1. There is eviden ce of previo us rotato r cuff surger y and biceps tenode sis. There has been decomp ressio n of the AC joint. 2. There is small area of abnorm al fluid signal seen throug hout most of the thickn ess of the supras pinatu s tendon just above the greate r tubero sity, more promin ent on the huang l than the sagitt al images and not associ ated with fluid in the overly ing subacr omial space. Either repres ents small full-t hickne ss tear or promin ent partia l-thic kness tear. 3. Atroph ic appear ing teres minor. 4. Focal signal abnorm ality at the insert ional aspect of the anteri or cuff-s ubscap ularis but no full-t hickne ss tear. 5. Small tear in the mingle operator ior superi or labrum . No eviden ce of parala bral cyst. 6. Modera te degene rative change s in the glenoh umeral joint. No obviou s joint effusi on. No loose intra- articu lar bodies eviden t. DATA REPOSI TORY: Ordere d By: Francheska Sheffield CC: ------ ------ ------ ------ ------ ------ ------ ------ ------ ------ ------ ------ - Dictat ed By: Venu Albarran M.D. 1704 Transc ribed By: Deion MCDONALD,Criselda jocelyne 1704 This is privil eged, confid ential inform ation intend ed only for the provid er named. Any use or distri bution by any person other than this provid er is strict ly prohib ited. If you receiv e this report in error, please notify us immedi ately at and return the origin al report to us at the addres s above. Thank- you. [email or web address] [facility] [address], [place], [address] 05/11/2024 14:04:21 Result Notes None recorded. Problems Name Status Onset Date Resolution Date Notes Provider Name and Address Organization Details Recorded Time Osteoarthritis of knee Active 2013 Problem Code: M17.9; Problem Code Type: ICD-10; Not Available [facility] 4 10:41:10 Body mass index 40+ - severely obese Active 2013 Problem Code: Z68.43; Problem Code Type: ICD-10; Not Available [facility] 4 10:41:10 Essential hypertension Active 201312/13/2022 - Comments only - Francheska Sheffield TILE GRINDER - restart lisinopril 30mg daily. 2 week follow up BP check. Problem Code: I10; Problem Code Type: ICD-10; Not Available [facility] 4 10:41:11 Anxiety Active 2014 Problem Code: F41.8; Problem Code Type: ICD-10; Not Available [facility] 4 10:41:11 Hypothyroidism Active 201512/13/2022 - Comments only - Francheska Sheffield TILE GRINDER - TSH ordered. off of meds for months. Problem Code: E03.9; Problem Code Type: ICD-10; Not Available [facility] 4 10:41:10 Screening for malignant neoplasm of colon Active 2016 Problem Code: Z12.11; Problem Code Type: ICD-10; Not Available [facility] 4 10:41:10 Dyspnea Active 2016 Problem Code: R06.02; Problem Code Type: ICD-10; Not Available [facility] 4 10:41:10 Urge incontinence of urine Active 2016 Problem Code: N39.41; Problem Code Type: ICD-10; Not Available [facility] 4 10:41:11 Uncomplicated moderate persistent asthma Active 2016 Problem Code: J45.40; Problem Code Type: ICD-10; Not Available [facility] 4 10:41:11 Screening for malignant neoplasm of prostate Active 201712/13/2022 - Comments only - Francheska Sheffield TILE GRINDER - PSA ordered. Problem Code: Z12.5; Problem Code Type: ICD-10; Not Available [facility] 4 10:41:11 Blood in urine Completed 201810/22/2023 Problem Code: R31.9; Problem Code Type: ICD-10; [address] [place], [address] , [facility]. 3 10:52:52 Therapeutic drug monitoring assay Active 2018 Problem Code: Z51.81; Problem Code Type: ICD-10; Not Available [facility] 4 10:41:10 Onychomycosis due to dermatophyte Active 2018 Problem Code: B35.1; Problem Code Type: ICD-10; Not Available [facility] 4 10:41:10 Nicotine dependence Active 202012/13/2022 - Comments only - Francheska Sheffield TILE GRINDER - low dose CT lung cancer screening ordered. quit in 2020. 40 pack year history. Problem Code: Z87.891; Problem Code Type: ICD-10; Not Available [facility] 4 10:41:11 Circumcision Active 202212/13/2022 - Comments only - Francheska Sheffield TILE GRINDER - Referral placed to urology Problem Code: Z41.2; Problem Code Type: ICD-10; Not Available [facility] 4 10:41:11 Counseling Completed 202212/18/2022 12/13/2022 - Comments only - Francheska Sheffield TILE GRINDER - Now established on my panel. Will follow up in 2 weeks for nurse visit BP check. Will follow up in 3 months iw provider for chronic condition check in. Problem Code: Z71.89; Problem Code Type: ICD-10; Not Available [facility] 3 05:01:26 Morbid obesity Completed 201307/28/2023 Not [address] [facility] 3 05:01:26 Chest pain Completed 201409/01/2019 Problem Code: R07.9; Problem Code Type: ICD-10; Not Available [facility] 3 05:01:27 Pain of right shoulder joint Active 2022 Not Available [facility] 4 10:41:10 Steatosis of liver Active 2022 Not Available [facility] 4 10:41:10 Prediabetes Active 2022 Not Available [facility] 4 10:41:11 Type 2 diabetes mellitus without complication Active 2022 Not Available [facility] 4 10:41:10 Kidney stone Active 2022 Not Available [facility] 4 10:41:11 Screening for malignant neoplasm of colon Completed 202208/19/2023 07/29/2023 - Comments only - Francheska Sheffield TILE GRINDER - colonoscopy ordered. requested [facility]. sent. Problem Code: Z12.11; Problem Code Type: ICD-10; Not Available [facility] 4 05:37:31 Phimosis Active 202207/29/2023 - Comments only - Francheska Sheffield TILE GRINDER - see above Problem Code: N47.1; Problem Code Type: ICD-10; Not Available [facility] 4 05:37:32 Pain of left lower leg Active 202207/29/2023 - Unchanged - Francheska Sheffield TILE GRINDER - continue duloxetine but at increased dose of 90mg daily. see if helpful Problem Code: M79.662; Problem Code Type: ICD-10; Not Available [facility] 4 05:37:32 Hepatomegaly Active 2022 Problem Code: R16.0; Problem Code Type: ICD-10; Not Available [facility] 4 05:37:32 Spasm of back muscles Active 2022 Problem Code: M62.830; Problem Code Type: ICD-10; Not Available [facility] 4 05:37:32 Neuralgia Active 202209/12/2023 - Comments only - Francheska Sheffield TILE GRINDER - See above. ProblemCode: 'M79.2'; ProblemCodeT ype: 'ICD-10'; Not Available [facility] 4 05:37:33 Poor stream of urine Active [address], [place], [address] , [facility] 4 13:20:32 Hyperlipidemia Active [address], [place], [address] , [facility]. 4 13:23:00 Notes:Some problems listed i n Documents: #[id number], #[id number], #[id number], #[id number] could not be added to this patient's chart. Please review these documents and add these problems to the patient's chart manually as needed. Problem Notes None recorded. Procedures Surgical History None recorded. Imaging Results Imaging Date Name Status LastModified by Organiz ation Details LastModified Time 12/10/2023 MRI imaging report completed [address] [place], [address] 12/20/2023 16:54:00 12/10/2023 MRI imaging report completed [address] [place], [address] 05/11/2024 14:04:21 Procedure Notes None recorded. Medical Equipment None Reported. Allergies Allergen ID Allergen Name Allergen Category Reaction Reaction Severity Criticality Documentation Date Start Date Code Code System Note Provider Name and Address Organization Details Recorded Time 51501 hydrocodo ne Not available headache severe Not available 01/07/2024 5489 RxNorm SERG ERVIN, [facility] 4 10:35:25 91835 sulfasala zine medicatio n headache severe Not available 01/07/2024 9524 RxNorm ROCKY SHEIKH RN null, [facility] 4 10:35:50 82907 Lyrica medicatio n Not available Not available Not available 01/07/2024 99682 1 RxNorm tingl ing, bloat ing SERG ERVIN, [facility] 4 10:36:20 07094 Paxil medicatio n Not available Not available Not available 01/07/2024 71398 8 RxNorm zomb ified ROCKY SHEIKH RN null, [facility] 4 10:36:40 80844 Kogenate medicatio n Not available Not available Not available 01/07/2024 10130 RxNorm SERG ERVIN, [facility] 4 10:37:03 Medications Name Sig Start Date Stop Date Status Note LastModified by Organization Details LastModified Time diclofena c 75 mg-misopr ostol 200 mcg tablet,im mediate,d elayed release twice daily 09/26 completed Not Available Not Available Not Available cyclobenz aprine 10 mg tablet TAKE ONE TABLET BY MOUTH TWICE A DAY NEEDED FOR MUSCLE SPASMS 12/30 completed Not Available Not Available Not Available oxybutyni n chloride ER 15 mg tablet,ex tended release 24 hr Take 1 tablet by mouth once a day 12/08 completed Not Available Not Available Not Available atorvasta tin 20 mg tablet TAKE ONE TABLET BY MOUTH EVERY EVENING active Not Available Not Available No t Available ibuprofen 800 mg tablet 2TAB daily 11/02 completed Not Available Not Available Not Available metoprolo l succinate ER 50 mg tablet,ex tended release 24 hr Take 1 tab by mouth daily 09/01 completed Not Available Not Available Not Available Paxil 20 mg tablet Take 1 tab po every morning 08/01 completed Not Available Not Available Not Available lisinopri l 20 mg tablet take 1 and a half tabs by mouth once daily for hyperten kwame. Dose is 30mg daily 2023 active Not Available Not Available Not Avai lable prednison e 20 mg tablet TAKE TWO TABLETS BY MOUTH EVERY DAY FOR 3 DAYS; THEN TAKE ONE TABLET BY MOUTH DAILY FOR 3 DAYS; THEN TAKE ONE-HALF TABLET BY MOUTH DAILY FOR 3 DAYS; THEN ONE-HALF TABLET BY MOUTH EVERY OTHER DAY FOR 3 DOSES active Not Available Not Available No t Available Prilosec 20 mg capsule,d elayed release 1 tab daily 07/05 completed Not Available Not Available Not Available tramadol 50 mg tablet TAKE ONE TABLET BY MOUTH THREE TIMES A DAY NEEDED FOR WORST PAIN active pt states on average taking twice daily, sometime s needs 3 tabs Not Available Not Available Not Available levothyro xine 75 mcg tablet Take 1 tablet by mouth once a day 09/21 completed Not Available Not Available Not Available terbinafi ne HCl 250 mg tablet Take 1 tablet by mouth once a day 12/08 completed Not Available Not Available Not Available tamsulosi n 0.4 mg capsule Take 1 capsule every day by oral route at bedtime. 2023 active Not Available Not Available Not Avai lable amitripty line 10 mg tablet 1 tab at bedtime 04/24 completed Not Available Not Available Not Available levothyro xine 50 mcg tablet TAKE ONE TABLET BY MOUTH EVERY DAY active Not Available Not Available No t Available lisinopri l 10 mg tablet 1 TAB daily 01/18 completed Not Available Not Available Not Available ibuprofen 200 mg tablet 3tabs caity 01/28 completed Not Available Not Available Not Available lisinopri l 30 mg tablet Take 1 tablet by mouth once a day keep 07/20 appt for add refills 09/21 completed Not Available Not Available Not Available Pain Reliever (acetamin ophen-asp irin-caff ) 250 mg-250 mg-65 mg tablet Take 2 tablets as needed by oral route. 06/02 completed Not Available Not Available Not Available Tylenol 325 mg tablet Take 2 tablets every 6 hours by oral route as needed. active Not Available Not Available No t Available isosorbid e mononitra te 10 mg tablet 02/26 completed Not Available Not Available Not Available hydrochlo rothiazid e 25 mg tablet TAKE ONE TABLET BY MOUTH EVERY DAY 06/02 completed Not Available Not Available Not Available gabapenti n 100 mg capsule START BY TAKING ONE CAPSULE BY MOUTH EVERY DAY AT BEDTIME, INCREASE TO A MAX OF 3 CAPSULES AT BEDTIME TOLERATE D 12/08 completed Not Available Not Available Not Available metoprolo l succinate ER 25 mg tablet,ex tended release 24 hr Take 1 tablet by mouth twice daily. 2012 active Not Available Not Available Not Avai lable ergocalci ferol (vitamin D2) 1,250 mcg (50,000 unit) capsule once a week 12/08 completed Not Available Not Available Not Available albuterol sulfate HFA 90 mcg/actua tion aerosol inhaler INHALE 2 PUFFS BY MOUTH EVERY 4 HOURS NEEDED active Not Available Not Available No t Available oxybutyni n chloride 5 mg tablet Take 1 tab by mouth twice daily. 2016 active Not Available Not Available Not Avai lable lisinopri l 40 mg tablet TAKE ONE TABLET BY MOUTH EVERY DAY active Not Available Not Available No t Available multivita min capsule 1 tab daily 2014 active Not Available Not Available Not Avai lable metformin ER 500 mg tablet,ex tended release 24 hr TAKE ONE TABLET BY MOUTH EVERY DAY FOR BLOOD SUGAR CONTROL active Not Available Not Available No t Available Vitamin D 50,000 unit capsule 1TAB Two times per week 06/23 completed Not Available Not Available Not Available Lexapro 10 mg tablet 1TAB qd 03/23 completed Not Available Not Available Not Available Lexapro 20 mg tablet Take 1 tablet by mouth daily 2014 active Not Available Not Available Not Avai lable metoprolo l tartrate 25 mg tablet 1TAB bid 07/10 completed Not Available Not Available Not Available duloxetin e 30 mg capsule,d elayed release TAKE ONE CAPSULE BY MOUTH EVERY DAY WITH 60MG active Not Available Not Available No t Available duloxetin e 60 mg capsule,d elayed release TAKE ONE CAPSULE BY MOUTH EVERY DAY WITH 30MG CAPSULE 2023 active Not Available Not Available Not Avai lable Cymbalta 20 mg capsule,d elayed release Take 1 by mouth daily 2012 active Not Available Not Available Not Avai lable Lyrica 25 mg capsule oral bid 09/27 completed Not Available Not Available Not Available Lyrica 75 mg capsule 1TAB twice daily 06/27 completed Not Available Not Available Not Available Bactrim twice daily 02/16 completed Not Available Not Available Not Available Tylenol Take 2 tablet once a day active 40mg asa, 250mg tylenol and caffeine 40mg Medicati onName: 'tylenol back relief'; Not Available Not Available Not Available cephalexi n twice daily 02/16 completed Not Available Not Available Not Available Multivita mins 1 TAB daily 2014 active Not Available Not Available Not Avai lable Symbicort 160 mcg-4.5 mcg/actua tion HFA aerosol inhaler Inhale 2 puff by mouth twice a day 12/08 completed Not Available Not Available Not Available Vicodin 5 mg-300 mg tablet 02/16 completed Not Available Not Available Not Available Vitals Date Recorded Body height Body mass index (BMI) Body weight Body temperature Heart rate Respiratory rate Systolic blood pressure Diastolic blood pressure Provider Name and Address Organization Details Last Updated DateTime 4 172.72 cm 46.9 kg/m2 780259. 89 g 98.1 [degF] 78 /min 14 /min 136 mm[Hg] 82 mm[Hg] ROCKY SHEIKH RN [facility] 4 11:03:42 Date Recorded Body height Body mass index (BMI) Body weight Body temperature Respiratory rate Heart rate Systolic blood pressure Diastolic blood pressure Provider Name and Address Organization Details Last Updated DateTime 4 172.72 cm 42.1 kg/m2 374990. 65 g 98.1 [degF] 16 /min 72 /min 100 mm[Hg] 70 mm[Hg] ROCKY SHEIKH RN [facility] 4 13:01:24 Social History Question Answer Notes LastModified by Organizat ion Details LastModified Time Tobacco Smoking Status Current Some Day Smoker 1 pack per month ROCKY SHEIKH RN [facility], [facility] 06/02/2024 12:57:25 Do You Or Have You Ever Used E-cigarettes Or Vape? Current User Of Electronic Cigarettes Vaping A Couple Times A Month Information not available 06/02/2024 1) Date Of Last VPMS Check? 06/02/2024 Tramadol 50mg Last Filled 05/16/24 For Quantity #84 (28-day Supply) Information not available 06/02/2024 2) VPMS Findings No Concerns Information not available 06/02/2024 3) Date Of Last Contract: 01/07/2024 Information not available 06/02/2024 What Was The Date Of Your Most Recent Tobacco Screening? 06/02/2024 Not Ready To Quit - Says He Is Focused On Losing Weight Information not available 06/02/2024 Do You Or Have You Ever Used Smokeless Tobacco? Never Used Smokeless Tobacco Information not available 06/02/2024 Has Tobacco Cessation Counseling Been Provided? Yes Information not available 06/02/2024 On What Date Was Tobacco Cessation Counseling Provided? 06/02/2024 Information not available 06/02/2024 Do You Or Have You Ever Used Any Other Forms Of Tobacco Or Nicotine? Yes Information not available 06/02/2024 Sex: Male Functional Status None recorded. Mental Status None recorded. Family History Relationship Description Onset Age of this Age Resolved Age Notes Notes:*Problem: Mother: Osbaldo lopez Father: () Parkinsons Brothers: one Children: two boys Family History of: Hypertension: No Hyperlipidemia: No Coronary heart disease: No Diabetes mellitus: No Breast cancer: No Colorectal cancer: No Prostate cancer: No Alcoholism: No Mental illness: Yes Alzheimer - MGM, aunt (2) and uncle Maternal grandfather of [place] at age 66. Medical History No medical history recorded. Immunizations Vaccine Type Date Status Provider Name and Address Organization Details Recorded Time MMR 02/28/2013 completed Not Available [facility] 10:41:11 MMR 08/31/2012 completed Not Available [facility] 10:41:11 Tdap 12/02/2022 completed Not Available [facility] 10:41:11 Tdap 08/18/2012 completed Not Available [facility] 10:41:11 Influenza, split virus, trivalent, preservative 09/21/2016 completed Not Available [facility] 11/06/2023 10:41:11 Influenza, split virus, quadrivalent, PF 09/01/2019 completed Not Available [facility] 11/06/2023 10:41:11 zoster, unspecified formulation 12/02/2022 completed Not Available [facility] 11/06/2023 10:41:11 varicella 02/28/2013 completed Not Available [facility] 10:41:11 varicella 08/31/2012 completed Not Available [facility] 10:41:11 COVID-19, mRNA, LNP-S, bivalent, PF, 30 mcg/0.3 mL dose 09/09/2022 completed [facility] 11/06/2023 10:41:11 Hep B, unspecified formulation 02/28/2013 completed Not Available [facility] 11/06/2023 10:41:11 Hep B, unspecified formulation 08/31/2011 completed Not Available [facility] 11/06/2023 10:41:11 Hep B, unspecified formulation 09/30/2012 completed Not Available [facility] 11/06/2023 10:41:11 Hep A, unspecified formulation 02/28/2013 completed Not Available [facility] 11/06/2023 10:41:11 Hep A, unspecified formulation 08/31/2012 completed Not Available [facility] 11/06/2023 10:41:11 Hep A, unspecified formulation 09/30/2012 completed Not Available [facility] 11/06/2023 10:41:11 influenza, unspecified formulation 06/22/2014 completed Not Available [facility] 11/06/2023 10:41:11 influenza, unspecified formulation 09/26/2013 completed Not Available [facility] 11/06/2023 10:41:11 Influenza, split virus, quadrivalent, PF 07/20/2023 completed Not Available [facility] 11/12/2023 05:32:35 zoster recombinant 07/20/2023 completed Not Available [facility] 11/12/2023 05:32:35 COVID-19, mRNA, LNP-S, PF, elena-sucrose, 30 mcg/0.3 mL 09/07/2023 completed Not Available [facility] 11/12/2023 05:32:35 Past Encounters Encounter ID Performer Location Encounter Start Date Encounter Closed Date Diagnosis/Indication Diagnosis SNOMED-CT Code [id number] DESTINEY JAIME [facility] [address] [place] [address] 10/15/2023 13:32:22 10/15/2023 14:45:21 Pain of right shoulder joint 06993031909325 100 Type 2 harry betes mellitus without complication 816676321 Essential hypertension 96789269 Steatosis of liver 44341 1007 Circumcision 27200088 Kidney stone 00496306 [id number] Chula Akers RN [address],[facility] [address] [place] [address] 12/15/2023 09:41:14 12/15/2023 10:08:41 [id number] Margaret Awad MA [address] [place] [address] 12/17/2023 10:52:36 12/17/2023 11:19:52 [id number] FRANCHESKA SHEFFIELD [facility] [address] [place] [address] 01/07/2024 10:46:03 01/07/2024 11:29:19 Kidney stone 95503717 Pain of ri ght shoulder joint 10787949595425 [id number] Chula Akers RN [address] [place] [address] 04/03/2024 09:09:51 04/03/2024 09:36:38 Infection screening 359646804 [id number] FRANCHESKA SHEFFIELD [facility] [address] [place] [address] 06/02/2024 11:59:48 06/02/2024 13:49:15 Essential hypertension 00194656 Hypothyroidism 19344624 Poor stream of urine 162 855951 Type 2 harry betes mellitus without complication 397757785 Hyperlipidemia 56872079 Health Concerns Section Related Observation LastModified by Organization Detai ls LastModified Time None Recorded Concern Status LastModified by Organization Details LastModified Time None Recorded Advance Directives Directive None Recorded Payers Encounter Date Sequence Insurance Name Policy Number Policy Morales Covered Member ID Morales Member ID Guarantor Name 12/15/2023 1 [place] [employer] Alcye Bailey [id number] Stevie Bailey 12/17/2023 1 [place] Alyce Bailey [id number] Stevie Bailey 01/07/2024 1 [place] Alyce Bailey [id number] Stevie Bailey 04/03/2024 1 [place] Alyce Bailey [id number] Stevie Bailey Notes Date Note Type Note Provider Name and Address Organization Details Recorded Time 01/07/2024 text/html HPI Notes: Joaquín iniguez is a pleasant 58 year old male here today for an acute visit for right shoulder pain. needs controlled agreement signed for start/continuation of Tramadol for ongoing shoulder pain (prior injury/repair rotator cuff) . We had talked on the phone previous to this visit about his consult with orthopedics (Dr. Hudson at [place]) telling him he didn't think surgery was a good option at this time. Is going to PT but is in pain. Pt says he is taking 2 tabs Tramadol daily, somewhat helpful with pain but asking about how long it lasts, feels like shorter Noted: weight loss! Pt was around 376 in March 2023 (his home scale), was 328 at [facility] Oct 2023 and down to 308 today! Says he has cut out almost all carbohydrates (20g or less/day) Also wondering if he can restart tamsulosin for urinary flow change. was on previously for kidney stone then had been told to continue by urology but ran out. Says he notices. Recently also had circumcision for phimosis. FRANCHESKA SHEFFIELD, DESTINEY [address], [place], [address], [facility], [facility]. 01/27/2024 23:40:06
--- OUTSIDE RECORDS SUMMARY | 2024-06-02 15:26 | XMS_ITS | Continuity of Care Document ---
Author Organization [place] [facility] [employer] [facility], [facility] Address [address] [place] [address] Assessment No assessment recorded. Plan of Treatment Reminders Order Date Submit Date Provider Last Modified By Organization Details Last Modified Time Details Appointments Follow Up 2023 12:30P M FRANCHESKA SHEFFIELD Not available Not available Not available Follow Up 2023 01:00P M FRANCHESKA SHEFFIELD Not available Not available Not available Lab None recorded . Referral None recorded . Procedures None recorded . Surgeries None recorded . Imaging None recorded . Medication Orders None recorded . Patient TargetsNo targets recorded. Patient InstructionsNo instructions recorded. Reason for Referral Urologist Referral for Circu mcision Referring Physician: Family Sofia Jaime, Encounter Date: 10/19/2023 Ultrasonic Cleaner Referral for Steatosis of liver Referring Physician: Family Sofia Jaime, Encounter Date: 10/19/2023 Orthopedic Surgeon Referral for Shoulder pain right shoulder pain, abnormal MRI right shoulder (12/10/23 - multiple abnormalities), prior surgery. right shoulder pain, abnormal MRI right shoulder (12/10/23 - multiple abnormalities), prior surgery. Referring Physician: Family Sofia Jaime, Encounter Date: 12/20/2023 Results Created Date Observation Date Name Description Value Unit Range Abnormal Flag LastModifiedBy Organization Detail LastModifiedTime 05/01/2012/10/2023 MRI imagi ng jamie cummins Name: Tree Antoine liss Leavitt Unit #: [id number] Loc: DI Orderi ng Provid er: Francheska Sheffield t #: [id number] Status : REG CLI Primar y [...] H/O RT ROTATO R CUFF REPAIR AT [facility] 2011 TECHNI QUE: Multip lanar multis equenc [...] degene rative subart icular cysts in the hotel front office manager olater al aspect of the osvaldo l [...] focus of signal abnorm ality in the hotel front office manager ior-padilla perior labrum seen on the axial [...] ss tear. 5. Small tear in the hotel front office manager ior superi or labrum . No eviden [...] - Dictat ed By: Venu Albarran M.D. [id number] Transc ribed By: Deion MCDONALD,Criselda jocelyne [email or web address] This is privil eged, confid ential inform ation intend ed only for the provid er named. Any use or distri bution by any person other than this provid er is strict ly prohib ited. If you receiv e this report in error, please notify us immedi ately at and return the origin al report to us at the addres s above. Thank- you. [email or web address] [facility] [address], [place], [address] 05/11/2024 14:04:21 Result Notes None recorded. Problems Name Status Onset Date Resolution Date Notes Provider Name and Address Organization Details Recorded Time Osteoarthritis of knee Active 2013 Problem Code: M17.9; Problem Code Type: ICD-10; Not Available [facility] 4 10:41:10 Body mass index 40+ - severely obese Active 2013 Problem Code: Z68.43; Problem Code Type: ICD-10; Not Available [facility] 4 10:41:10 Essential hypertension Active 201312/13/2022 - Comments only - Francheska Sheffield MEDICAID COLLECTION SPECIALIST - restart lisinopril 30mg daily. 2 week follow up BP check. Problem Code: I10; Problem Code Type: ICD-10; Not Available [facility] 4 10:41:11 Anxiety Active 2014 Problem Code: F41.8; Problem Code Type: ICD-10; Not Available [facility] 4 10:41:11 Hypothyroidism Active 201512/13/2022 - Comments only - Francheska Sheffield MEDICAID COLLECTION SPECIALIST - TSH ordered. off of meds for months. Problem Code: E03.9; Problem Code Type: ICD-10; Not Available [facility] 4 10:41:10 Screening for malignant neoplasm of colon Active 2016 Problem Code: Z12.11; Problem Code Type: ICD-10; Not Available [facility] 4 10:41:10 Dyspnea Active 2016 Problem Code: R06.02; Problem Code Type: ICD-10; Not Available [facility] 4 10:41:10 Urge incontinence of urine Active 2016 Problem Code: N39.41; Problem Code Type: ICD-10; Not Available [facility] 4 10:41:11 Uncomplicated moderate persistent asthma Active 2016 Problem Code: J45.40; Problem Code Type: ICD-10; Not Available [facility] 4 10:41:11 Screening for malignant neoplasm of prostate Active 201712/13/2022 - Comments only - Francheska Sheffield MEDICAID COLLECTION SPECIALIST - PSA ordered. Problem Code: Z12.5; Problem Code Type: ICD-10; Not Available [facility] 4 10:41:11 Blood in urine Completed 201810/22/2023 Problem Code: R31.9; Problem Code Type: ICD-10; [address], [place], [address] , [facility]. 3 10:52:52 Therapeutic drug monitoring assay Active 2018 Problem Code: Z51.81; Problem Code Type: ICD-10; Not Available [facility] 4 10:41:10 Onychomycosis due to dermatophyte Active 2018 Problem Code: B35.1; Problem Code Type: ICD-10; Not Available [facility] 4 10:41:10 Nicotine dependence Active 202012/13/2022 - Comments only - Francheska Sheffield MEDICAID COLLECTION SPECIALIST - low dose CT lung cancer screening ordered. quit in 2020. 40 pack year history. Problem Code: Z87.891; Problem Code Type: ICD-10; Not Available [facility] 4 10:41:11 Circumcision Active 202212/13/2022 - Comments only - Francheska Sheffield MEDICAID COLLECTION SPECIALIST - Referral placed to urology Problem Code: Z41.2; Problem Code Type: ICD-10; Not Available [facility] 4 10:41:11 Counseling Completed 202212/18/2022 12/13/2022 - Comments only - Francheska Sheffield MEDICAID COLLECTION SPECIALIST - Now established on my panel. Will follow up in 2 weeks for nurse visit BP check. Will follow up in 3 months iw provider for chronic condition check in. Problem Code: Z71.89; Problem Code Type: ICD-10; Not Available [facility] 3 05:01:26 Morbid obesity Completed 201307/28/2023 Not Available [facility] 3 05:01:26 Chest pain Completed 201409/01/2019 Problem Code: R07.9; Problem Code Type: ICD-10; Not Available [facility] 3 05:01:27 Pain of right shoulder joint Active 2022 Not Available [facility] 4 10:41:10 Steatosis of liver Active 2022 Not Available [facility] 4 10:41:10 Prediabetes Active 2022 Not Available [facility] 4 10:41:11 Type 2 diabetes mellitus without complication Active 2022 Not Available [facility] 4 10:41:10 Kidney stone Active 2022 Not Available [facility] 4 10:41:11 Screening for malignant neoplasm of colon Completed 202208/19/2023 07/29/2023 - Comments only - Francheska Sheffield MEDICAID COLLECTION SPECIALIST - colonoscopy ordered. requested [facility]. sent. Problem Code: Z12.11; Problem Code Type: ICD-10; Not Available [facility] 4 05:37:31 Phimosis Active 202207/29/2023 - Comments only - Francheska Sheffield MEDICAID COLLECTION SPECIALIST - see above Problem Code: N47.1; Problem Code Type: ICD-10; Not Available [facility] 4 05:37:32 Pain of left lower leg Active 202207/29/2023 - Unchanged - Francheska Sheffield MEDICAID COLLECTION SPECIALIST - continue duloxetine but at increased dose of 90mg daily. see if helpful Problem Code: M79.662; Problem Code Type: ICD-10; Not Available [facility] 4 05:37:32 Hepatomegaly Active 2022 Problem Code: R16.0; Problem Code Type: ICD-10; Not Available [facility] 4 05:37:32 Spasm of back muscles Active 2022 Problem Code: M62.830; Problem Code Type: ICD-10; Not Available [facility] 4 05:37:32 Neuralgia Active 202209/12/2023 - Comments only - Francheska Sheffield MEDICAID COLLECTION SPECIALIST - See above. ProblemCode: 'M79.2'; ProblemCodeT ype: 'ICD-10'; Not Available [facility] 4 05:37:33 Poor stream of urine Active 2023 DESTINEY JAIME [address], [place], [address] , [facility]. 4 13:20:32 Hyperlipidemia Active [address], [place], [address] , [facility]. 4 13:23:00 Notes:Some problems listed i n Documents: #[id number], #[id number], #[id number], #[id number] could not be added to this patient's chart. Please review these documents and add these problems to the patient's chart manually as needed. Problem Notes None recorded. Medical Equipment None Reported. Allergies Allergen ID Allergen Name Allergen Category Reaction Reaction Severity Criticality Documentation Date Start Date Code Code System Note Provider Name and Address Organization Details Recorded Time 94227 hydrocodo ne Not available headache severe Not available 01/07/2024 5489 RxNorm ROCKY SHEIKH RN null, [facility] 4 10:35:25 02537 sulfasala zine medicatio n headache severe Not available 01/07/2024 9524 RxNorm ROCKY SHEIKH RN null, [facility] 4 10:35:50 96649 Lyrica medicatio n Not available Not available Not available 01/07/2024 35527 1 RxNorm tingl ing, bloat ing ROCKY SHEIKH RN null, [facility] 4 10:36:20 05892 Paxil medicatio n Not available Not available Not available 01/07/2024 66838 8 RxNorm zomb ified ROCKY SHEIKH RN null, [facility] 4 10:36:40 91611 Kogenate medicatio n Not available Not available Not available 01/07/2024 98857 RxNorm ROCKY SHEIKH RN null, [facility] 4 10:37:03 Medications Name Sig Start [...] Not Available Not Available Not Available Vitals None Recorded Social History Question Answer Notes LastModified by Organizat ion Details LastModified Time Tobacco Smoking Status Current Some Day Smoker 1 pack per month ROCKY SHEIKH RN [facility], [place] - [facility]. 06/02/2024 12:57:25 Do You Or Have You [...] aunt (2) and uncle Maternal grandfather of [place] at age 66. Medical History No medical history recorded. Immunizations Vaccine Type Date Status Provider Name and Address Organization Details Recorded Time MMR 02/28/2013 completed Not Available [facility] 10:41:11 MMR 08/31/2012 completed Not Available [facility] 10:41:11 Tdap 12/02/2022 completed [facility] 10:41:11 Tdap 08/18/2012 completed [facility] 10:41:11 Influenza, split virus, trivalent, preservative 09/21/2016 completed Not Available [facility] 11/06/2023 10:41:11 Influenza, split virus, quadrivalent, PF 09/01/2019 completed Not Available [facility] 11/06/2023 10:41:11 zoster, unspecified formulation 12/02/2022 completed Not Available [facility] 11/06/2023 10:41:11 varicella 02/28/2013 completed Not Available [facility] 10:41:11 varicella 08/31/2012 completed Not Available [facility] 10:41:11 COVID-19, mRNA, LNP-S, bivalent, PF, 30 mcg/0.3 mL dose 09/09/2022 completed Not Available [facility] 11/06/2023 10:41:11 Hep B, unspecified formulation 02/28/2013 completed Not Available [facility] 11/06/2023 10:41:11 Hep B, unspecified formulation 08/31/2011 completed Not Available [facility] 11/06/2023 10:41:11 Hep B, unspecified formulation 09/30/2012 completed Not Available [facility] 11/06/2023 10:41:11 Hep A, unspecified formulation 02/28/2013 completed Not Available [facility] 11/06/2023 10:41:11 Hep A, unspecified formulation 08/31/2012 completed Not Available [facility] 11/06/2023 10:41:11 Hep A, unspecified formulation 09/30/2012 completed Not Available [facility] 11/06/2023 10:41:11 influenza, unspecified formulation 06/22/2014 completed Not Available [facility] 11/06/2023 10:41:11 influenza, unspecified formulation 09/26/2013 completed Not Available [facility] 11/06/2023 10:41:11 Influenza, split virus, quadrivalent, PF 07/20/2023 completed Not Available [facility] 11/12/2023 05:32:35 zoster recombinant 07/20/2023 completed Not Available [facility] 11/12/2023 05:32:35 COVID-19, mRNA, LNP-S, PF, elena-sucrose, 30 mcg/0.3 mL 09/07/2023 completed Not Available [facility] 11/12/2023 05:32:35 Past Encounters Encounter ID Performer Location Encounter Start Date Encounter Closed Date Diagnosis/Indication Diagnosis SNOMED-CT Code [id number] Chula Akers RN [address] [place] [address] 04/03/2024 09:09:51 04/03/2024 09:36:38 Infection screening 921972408 Health Concerns Section Related Observation LastModified by Organization Detai ls LastModified Time None Recorded Concern Status LastModified by Organization Details LastModified Time None Recorded Payers Encounter Date Sequence Insurance Name Policy Number Policy Morales Covered Member ID Morales Member ID Guarantor Name 04/03/2024 1 [place] [employer] [place] Alyce Bailey [id number] Stevie Bailey
[2024-06-02 17:16] LABS: ALT 28 U/L (16-63); AST 17 U/L (15-37); Albumin 4.4 g/dL (3.4-5.0); Alkaline Phosphatase 77 U/L (46-116); Anion Gap 11.1 mmol/L (3-11); BUN 26 mg/dL (7-18); Bilirubin, Total 0.76 mg/dL (0.2-1.0); CO2 25.9 mmol/L (21.0-32.0); CREATININE 1.2 mg/dL (0.70-1.30); Calcium 9.8 mg/dL (8.5-10.1); Chloride 102 mmol/L (98-107); FREE T4 0.99 ng/dL (0.76-1.46); Glucose 97 mg/dL (74-106); Potassium 5.1 mmol/L (3.5-5.1); Sodium 139 mmol/L (136-145); TSH 2.73 uIU/Ml (0.36-3.74); Total Protein 7.8 g/dL (6.4-8.2)
[2024-06-02 17:28] LABS: Calculated LDL 58 mg/dL (<100); Cholesterol 138 mg/dL (<200); HDL Cholesterol 64 mg/dL (40-60); Triglyceride 83 mg/dL (<150)
[2024-06-02 17:47] LABS: Hemoglobin A1C 5.8 % (<5.7)
[2024-06-05 09:38] LABS: PSA, Screening 1.8 ng/mL (<=3.5)
== END 2024-06-02 15:25 | disposition home or self-care (01) ==
LOC: NCHCN 15:24
PROVIDERS: PCP Nurse Practitioner Family; Visit Provider Nurse Practitioner Family
DX: I10 Essential (primary) hypertension (principal); E03.9 Hypothyroidism, unspecified; E78.5 Hyperlipidemia, unspecified; E11.9 Type 2 diabetes mellitus without complications; R39.12 Poor urinary stream; Z12.5 Encounter for screening for malignant neoplasm of prostate
CPT/HCPCS: 80053; 80061; 84153; 83036; 84439; 84443

== ENCOUNTER 2024-10-03 11:53 | Outpatient (REF) | payer BC, SELFPAY ==
[2024-10-03 15:05] LABS: Abs Immature Grans 0.03 10^3/uL (0.0-0.06); Absolute Basophil Count 0.04 10^3/uL (0.0-0.2); Absolute Eosinophil Count 0.21 10^3/uL (0.0-0.7); Absolute Lymphocyte Count 1.89 10^3/uL (1.2-3.4); Absolute Monocyte Count 0.74 10^3/uL (0.1-0.8); Absolute Neutrophil Count 4.35 10^3/uL (1.2-6.7); Basophils % 0.6 %; Eosinophils % 2.9 %; HCT 54.5 % (40.0-50.0); HGB 17.1 g/dL (13.5-17.5); Immature Grans % 0.4 %; MCH 28.2 pg (27.0-33.0); MCHC 31.4 % (32.0-36.0); MCV 90 fL (80-95); MPV 10.2 fL (8.0-11.0); Monocytes % 10.2 %; Neutrophils % 59.9 %; Platelet Count 278 10^3/uL (130-400); RBC 6.06 10^6/uL (4.36-5.78); RDW 13.2 % (11.8-14.1); RDW-SD 43.1 fL; WBC 7.26 10^3/uL (4.4-10.8)
[2024-10-03 15:11] LABS: Anion Gap 6.7 mmol/L (3-11); BUN 18 mg/dL (7-18); CO2 28.3 mmol/L (21.0-32.0); CREATININE 1.1 mg/dL (0.70-1.30); Calcium 9.1 mg/dL (8.5-10.1); Chloride 108 mmol/L (98-107); Estimated GFR 77.81 (mL/min/1.73m2); Glucose 103 mg/dL (74-106); Potassium 4.8 mmol/L (3.5-5.1); Sodium 143 mmol/L (136-145)
[2024-10-03 17:01] LABS: COMMENT (LAB VIEW ONLY) 114.74 mg/dL; Microalb ug/mg Crea 12.2 ug/mg Cr
== END 2024-10-03 11:54 | disposition home or self-care (01) ==
LOC: NCHCN 11:53
PROVIDERS: PCP Nurse Practitioner Family; Visit Provider Nurse Practitioner Family
DX: E11.9 Type 2 diabetes mellitus without complications (principal); I10 Essential (primary) hypertension; K04.7 Periapical abscess without sinus
CPT/HCPCS: 80048; 82043; 82570; 85025

== ENCOUNTER 2025-09-20 10:20 | Outpatient (REF) | payer OTHER, SELFPAY ==
[2025-09-20 16:02] LABS: HCT 51.6 % (40.0-50.0); HGB 16.8 g/dL (13.5-17.5); MCH 28.9 pg (27.0-33.0); MCHC 32.6 % (32.0-36.0); MCV 89 fL (80-95); MPV 10.8 fL (8.0-11.0); Platelet Count 281 10^3/uL (130-400); RBC 5.81 10^6/uL (4.36-5.78); RDW 13.1 % (11.8-14.1); RDW-SD 42.5 fL; TSH (W/Ref FT4) 4.55 uIU/mL (0.55-4.78); WBC 8.08 10^3/uL (4.4-10.8)
[2025-09-20 16:04] LABS: ALT 28 U/L (10-49); AST 29 U/L (<34); Albumin 4.7 g/dL (3.4-5.0); Alkaline Phosphatase 70 U/L (46-116); Anion Gap 6 mmol/L (3-11); BUN 18 mg/dL (9-23); Bilirubin, Total 0.60 mg/dL (0.2-1.2); CO2 27.0 mmol/L (20.0-31.0); Calcium 9.6 mg/dL (8.3-10.6); Chloride 108 mmol/L (98-107); Cholesterol 152 mg/dL (<200); Glucose 98 mg/dL (74-106); HDL Cholesterol 69 mg/dL (>40); Potassium 4.6 mmol/L (3.5-5.1); Sodium 141 mmol/L (136-145); Total Protein 7.4 g/dL (5.7-8.2)
[2025-09-20 16:15] LABS: Microalb ug/mg Crea 6.1 ug/mg Cr
[2025-09-20 16:21] LABS: Hemoglobin A1C 5.8 % (<5.7)
[2025-09-20 23:16] LABS: PSA, Screening 1.3 ng/mL (<=3.5)
== END 2025-09-20 10:21 | disposition home or self-care (01) ==
LOC: NCHCN 10:20
PROVIDERS: PCP Nurse Practitioner Family
DX: Z13.1 Encounter for screening for diabetes mellitus (principal); E03.9 Hypothyroidism, unspecified; Z00.00 Encounter for general adult medical examination without abnormal findings
CPT/HCPCS: 80053; 80061; 84153; 85027; 82043; 82570; 83036; 84443